=== PATIENT | female | born 1935 | race Caucasian/White ===

== ENCOUNTER → 2016-12-31 | Outpatient (CLI) | payer MEDICARE, OTHER | END | disposition home or self-care (01) | LOC: BFHH 08:49 | PROVIDERS: ATTEND Family Medicine | DX: E11.42 Type 2 diabetes mellitus with diabetic polyneuropathy (principal); R00.1 Bradycardia, unspecified; D64.9 Anemia, unspecified; D51.9 Vitamin B12 deficiency anemia, unspecified; E55.9 Vitamin D deficiency, unspecified; N39.0 Urinary tract infection, site not specified; E78.4 Other hyperlipidemia ==

== ENCOUNTER → 2017-02-09 | Outpatient (CLI) | payer MEDICARE, OTHER | END | disposition home or self-care (01) | LOC: GMAM 12:11 | PROVIDERS: ATTEND Family Medicine | DX: R00.1 Bradycardia, unspecified (principal) ==

== ENCOUNTER → 2017-04-27 | Outpatient (CLI) | payer MEDICARE, OTHER | END | disposition home or self-care (01) | LOC: BFHH 10:54 | PROVIDERS: ATTEND Family Medicine | DX: E11.42 Type 2 diabetes mellitus with diabetic polyneuropathy (principal); I10 Essential (primary) hypertension; I65.22 Occlusion and stenosis of left carotid artery; R00.1 Bradycardia, unspecified; F03.90 Unspecified dementia, unspecified severity, without behavioral disturbance, psychotic disturbance, mood disturbance, and anxiety; M15.0 Primary generalized (osteo)arthritis ==

== ENCOUNTER → 2017-05-28 | Outpatient (CLI) | payer MEDICARE, OTHER ==
--- NOTE | 2017-05-28 15:04 | RAD ---
EXAM DESCRIPTION: XR CHEST 2 VIEWS CLINICAL HISTORY: FEVER COMPARISON: None TECHNIQUE: PA/lateral FINDINGS: Heart size is normal. The lungs are clear. No acute bony abnormality. IMPRESSION: No acute cardiopulmonary process. Electronically signed by: Randolph Bardales MD 05/28/2017 3:02 PM CDT
== END | disposition home or self-care (01) ==
LOC: LAB.O 14:24
PROVIDERS: ATTEND Nurse Practitioner Family
DX: E53.8 Deficiency of other specified B group vitamins (principal); R50.9 Fever, unspecified; R53.82 Chronic fatigue, unspecified

== ENCOUNTER → 2017-07-13 | Outpatient (CLI) | payer MEDICARE, OTHER | END | disposition home or self-care (01) | LOC: BFHH 09:48 | PROVIDERS: ATTEND Family Medicine | DX: J44.1 Chronic obstructive pulmonary disease with (acute) exacerbation (principal); E11.42 Type 2 diabetes mellitus with diabetic polyneuropathy; E53.8 Deficiency of other specified B group vitamins; I10 Essential (primary) hypertension; E78.2 Mixed hyperlipidemia; M89.9 Disorder of bone, unspecified ==

== ENCOUNTER → 2017-10-04 | Outpatient (CLI) | payer MEDICARE, OTHER ==
--- NOTE | 2017-10-04 14:03 | RAD ---
Pelvis one view INDICATION: Left hip pain IMPRESSION: Degenerative scoliosis lumbar spine. Several ossifications in the right lower abdomen or soft tissues. Previous right hip arthroplasty. Ossicle adjacent to the greater trochanter without bridging. 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 No fracture or focal destructive lesion. Electronically signed by: Jake Lester MD 10/04/2017 2:02 PM [facility]
--- NOTE | 2017-10-04 14:07 | RAD ---
Left knee four views INDICATION: Knee pain IMPRESSION: Bones are osteopenic. Multiple vascular calcifications are noted. Mild patellofemoral osteoarthrosis with osteophytes along the joint margins. Moderate osteoarthrosis of the tibiofemoral compartments with joint space narrowing most pronounced in the lateral tibiofemoral compartment. No acute fracture or aggressive destructive lesion. Small suprapatellar joint effusion Electronically signed by: Jake Lester MD 10/04/2017 2:06 PM [facility]
== END | disposition home or self-care (01) ==
LOC: RAD 08:14
PROVIDERS: ATTEND Orthopaedic Surgery
DX: M25.562 Pain in left knee (principal); M25.552 Pain in left hip

== ENCOUNTER → 2017-10-19 | Outpatient (CLI) | payer MEDICARE, OTHER | END | disposition home or self-care (01) | LOC: GMAM 13:12 | PROVIDERS: ATTEND Family Medicine | DX: E11.42 Type 2 diabetes mellitus with diabetic polyneuropathy (principal); E53.8 Deficiency of other specified B group vitamins ==

== ENCOUNTER 2018-02-04 17:26 | Emergency (ER) | payer MEDICARE, OTHER ==
--- NOTE | 2018-02-04 17:49 | ED.PDOC ---
History of Present Illness - General Chief Complaint: GI Problem Stated Complaint: vomiting,diarrhea Time Seen by Provider: 02/04/18 17:34 Information Source: patient Exam Limitations: no limitations - History of Present Illness Initial Comments: Tania Vu 82 y/o female stated she was apparently well since this afternoon then went to have lunch at [facility] ate beef tips,macaroni and dessert then several hours after eating had onset of watery diarrhea followed by nausea /vomiting went to see her Md but was sent over here for further evaluation.She did not have N/V/D here in er. Abdominal Pain Onset Location: generalized abdomen Pain Radiation: no radiation Quality: mild, cramping Timing/Duration: 4-6 hours Improving Factors: nothing Worsening Factors: nothing Associated Symptoms: denies symptoms Review of Systems - Review of Systems Constitutional: States: no symptoms reported EENTM: States: no symptoms reported Respiratory: States: no symptoms reported Cardiology: States: no symptoms reported Gastrointestinal/Abdominal: States: see HPI Musculoskeletal: States: no symptoms reported Skin: States: no symptoms reported Neurological: States: no symptoms reported All other Systems: Reviewed and Negative, No Change from Baseline Past Medical History (General) - Patient Medical History Hx Seizures: No Hx Stroke: Yes - tia's Hx Dementia: No Hx Asthma: No Hx of COPD: No Hx Cardiac Disorders: Yes Hx Congestive Heart Failure: Yes Hx Pacemaker: No Hx Hypertension: Yes Hx Thyroid Disease: No Hx Diabetes: Yes - type 2 Hx Gastroesophageal Reflux: Yes Hx Renal Disease: No Hx Cancer: No Hx of HIV: No Hx Hepatitis C: No Hx MRSA: No Surgical History: tonsillectomy, other - hysterectomy,colonoscopy,left CEA - Vaccination History Hx Tetanus, Diphtheria Vaccination: No - allergy Hx Influenza Vaccination: Yes Hx Pneumococcal Vaccination: Yes - Social History Hx Tobacco Use: No Hx Chewing Tobacco Use: No Hx Alcohol Use: No Hx Substance Use: No Hx Substance Use Treatment: No Hx Depression: No Hx Physical Abuse: No Hx Emotional Abuse: No Hx Suspected Abuse: No - Female History Patient : No Family Medical History - Family History Mother Living Status: Hx Cardiac Disease: Yes - mom Hx Family;Other: bowel deformity;copd-dad Father Living Status: Hx Family Congestive Heart Failure: Yes Hx Family;Other: emphasema Physical Exam - Physical Exam General Appearance: Alert, Comfortable, No apparent distress Eyes, Ears, Nose, Throat Exam: normal ENT inspection Neck: non-tender, supple Respiratory: chest non-tender, lungs clear, normal breath sounds, no respiratory distress Cardiovascular/Chest: normal peripheral pulses, regular rate, rhythm, no murmur Peripheral Pulses: No deficit Gastrointestinal/Abdominal: normal bowel sounds, non tender, soft, no organomegaly Back Exam: no CVA tenderness, no vertebral tenderness Extremity: non-tender, normal inspection, no pedal edema, no calf tenderness Neurologic: alert, oriented x 3 Skin Exam: normal color, warm/dry Progress - Progress Progress: 02/04/18 18:46 02/04/18 17:50 URINALYSIS Stat Laboratory Results - last 24 hr 02/04/18 18:05 Total Bilirubin 0.4 Direct Bilirubin 0.1 Indirect Bilirubin 0.3 AST 27 ALT 12 Alkaline Phosphatase 51 Creatine Kinase 112 CK-MB (CK-2) 4.2 CK-MB (CK-2) % Not Reportable Troponin I < 0.02 Serum Total Protein 7.6 Albumin 4.2 Lipase 38 02/04/18 18:47 Vital Signs - 24 hr 02/04/18 02/04/18 17:45 18:45 Temperature 98.4 F Pulse Rate [ 62 61 Left Brachial] Respiratory 20 20 Rate Blood Pressure 117/66 120/63 [Left Arm] O2 Sat by Pulse 90 L 91 L Oximetry Departure - Departure Clinical Impression: Gastroenteritis Time of Disposition: 20:43 Disposition: Discharge to Home or Self Care Condition: Fair Departure Forms: ED Discharge - Pt. Copy, Patient Portal Self Enrollment Instructions: DI for Viral Gastroenteritis -- Adult, Gastroenteritis Diet Diet: other - AVOID GREASY ,SPICY,DAIRY FOODS UNTIL BETTER Referrals: Randolph Beasley MD [Primary Care Provider] - 1-2 Weeks Home Medications: Ambulatory Orders Donepezil HCl [Aricept] 5 mg PO DAILY 07/04/13 Gabapentin 300 mg PO TID 07/04/13 HYDROcodone 7.5MG/APAP 325MG [[place] 7.5/325] 1 ea PO Q6H 07/04/13 Bifidobacterium Infantis [Align] 4 mg PO DAILY #0 cap 01/10/14 Alum & Mag Hydrox-Simethicone [Mylanta] 30 ml PO PRN PRN 12/07/14 Aspirin [(None)] 81 mg PO QD 12/07/14 Estrogens, Conjugated [Premarin] 0.9 mg PO DAILY 12/07/14 Ferrous Sulfate 352 mg PO DAILY 12/07/14 Simvastatin 40 mg PO DAILY 12/07/14 Ondansetron Odt [Zofran ODT] 4 mg PO BID PRN #7 tab 06/20/15 Ascorbic Acid [Vitamin C] 500 mg PO DAILY 02/04/18 Cholecalciferol [Vitamin D3] 2,000 unit PO DAILY 02/04/18 Clorazepate Dipotassium [Tranxene T] 7.5 mg PO TID 02/04/18 Cyanocobalamin [Vitamin B-12] 1,000 mcg PO DAILY 02/04/18 Multiple Vitamins W/ Minerals [Centrum Silver] 1 tab PO DAILY 02/04/18 Polyethylene Glycol 3350 [Miralax] 17 gm PO DAILY 02/04/18 Pregabalin [Lyrica] 50 mg PO BEDTIME 02/04/18 Zinc 50 mg PO DAILY 02/04/18 Additional Instructions: Return to emergency room as needed
[2018-02-04] MEDS ORDERED: ONDANSETRON INJ 4 MG/2 ML VIAL IV ONE (17:50)
[2018-02-04] MEDS ORDERED: SODIUM CHLORIDE 0.9% 500ML 500 ML IVS ONE (17:50)
[2018-02-04] MEDS ORDERED: LOPERAMIDE CAP 2 MG CAP PO ONE (20:40)
[2018-02-05 01:32] VITALS: BP 141/89; TEMP 98.6; O2SAT 98
== END 2018-02-04 23:50 | disposition home or self-care (01) ==
LOC: ER 17:26
DX: K52.9 Noninfective gastroenteritis and colitis, unspecified (principal); I11.0 Hypertensive heart disease with heart failure; I50.9 Heart failure, unspecified; E11.9 Type 2 diabetes mellitus without complications; K21.9 Gastro-esophageal reflux disease without esophagitis; Z86.73 Personal history of transient ischemic attack (TIA), and cerebral infarction without residual deficits; Z79.82 Long term (current) use of aspirin

== ENCOUNTER → 2018-02-09 | Outpatient (CLI) | payer MEDICARE, OTHER | LOC: GMAM 16:56 | PROVIDERS: ATTEND Family Medicine | DX: R10.84 Generalized abdominal pain (principal) ==

== ENCOUNTER → 2018-02-11 | Outpatient (CLI) | payer MEDICARE, OTHER | LOC: GMAM 13:28 | PROVIDERS: ATTEND Family Medicine | DX: I50.22 Chronic systolic (congestive) heart failure (principal) ==

== ENCOUNTER → 2018-02-14 | Outpatient (CLI) | payer MEDICARE, OTHER ==
--- NOTE | 2018-02-14 11:04 | CT ---
EXAM DESCRIPTION: CT ABDOMEN AND PELVIS WITHOUT AND WITH CONTRAST CLINICAL HISTORY: ABD PAIN COMPARISON: CT abdomen June 03, 2016 TECHNIQUE: CT of the abdomen and pelvis are performed prior to and during IV bolus administration of 100 mL of Optiray 320. Oral contrast media is administered as well. FINDINGS: The lung bases are abnormal with chronic appearing scarring/atelectasis in the right middle lobe and clustered nodules in the peripheral right middle lobe and right lower lobe suggesting indolent infection with atypical organisms such as fungus or atypical TB. Findings are new or more extensive than on previous study in 2016. There is some associated peripheral bronchiolectasis. Gallbladder clips are seen in the right upper quadrant with gallbladder surgically absent. Small accessory splenule is present. Large right renal cyst measures 4.3 cm in diameter with density of 14.6 Hounsfield units. Liver is normal in size and parenchymal appearance on precontrast images. Spleen, pancreas, and kidneys are otherwise unremarkable. There is no lymphadenopathy, inflammation, or free fluid observed. After IV contrast, mild renal cortical thinning is seen with otherwise normal cortical enhancement. Normal enhancement of liver, spleen and pancreas and upper abdominal aorta. Multiple fatty calcifications around the colon are noted unchanged. Small lesion in the spleen may be cyst or unenhanced hemangioma. In the pelvis, metal artifact from right hip prosthesis causes obscuration of the right lateral aspect of the lower pelvis. No acute inflammatory changes around the cecum or terminal ileum or sigmoid colon. Appendix is not identified and may be surgically absent. Delayed images show positive contrast accumulation within the urinary collecting systems with no filling defects. No enhancement of the right renal lesion as expected for a simple cyst. Some mildly prominent fluid-filled small bowel loops are seen without a focal point of obstruction. Coronal and sagittal reformatted images confirm the findings. Severe degenerative disc disease is seen in the thoracolumbar spine. IMPRESSION: Nodular infiltrative changes in the right lung base. See above. Right renal cyst Mildly prominent small bowel loops in the mid abdomen. This is not thought likely to represent obstruction however. This exam was performed according to our departmental dose-optimization program, which includes automated exposure control, adjustment of the mA and/or kV according to patient size and/or use of iterative reconstruction technique. Total DLP equals 2445.46 mGycm. Electronically signed by: Chester Barajas MD 02/14/2018 11:03 AM CDT
== END ==
LOC: CT 08:46
PROVIDERS: ATTEND Family Medicine
DX: R10.84 Generalized abdominal pain (principal); R63.4 Abnormal weight loss; N28.1 Cyst of kidney, acquired

== ENCOUNTER → 2018-02-19 | Outpatient (CLI) | payer MEDICARE, OTHER | LOC: LAB.O 16:36 | PROVIDERS: ATTEND Family Medicine | DX: R91.8 Other nonspecific abnormal finding of lung field (principal) ==

== ENCOUNTER → 2018-03-17 | Outpatient (CLI) | payer MEDICARE, OTHER ==
--- NOTE | 2018-03-18 08:19 | CT ---
EXAM DESCRIPTION: Chest w/Contrast CLINICAL HISTORY: 82 years Female, ABNORMAL FINDING OF LUNG FIELD COMPARISON: CT abdomen and pelvis dated 02/14/2018. TECHNIQUE: Contiguous thin section axial images through the chest were obtained after the administration of intravenous contrast. Sagittal and coronal reconstructions were reviewed. FINDINGS: The visualized thyroid gland and supraclavicular region appear normal. No evidence of abnormally enlarged mediastinal, hilar or axillary lymphadenopathy. Trachea is midline and the central tracheobronchial tree is patent. Tree-in-bud airspace opacities are identified in the right upper and lower lobe. In addition scattered groundglass opacities are identified in both lungs. Findings are suspicious for atypical pneumonia. No evidence of pleural effusions. The heart is normal in size with no pericardial effusion. The visualized aorta is nonaneurysmal with mild to moderate atherosclerosis. The superior vena cava is normal in size and caliber. Mild coronary artery atherosclerosis. There is circumferential thickening of the distal esophagus which could be secondary to reflux. A simple cyst is identified in the interpolar region of the right kidney. No other abnormality is noted in the imaged upper abdomen. Degenerative changes are identified throughout the thoracic spine. IMPRESSION: 1. Tree in bud nodular airspace opacities and scattered groundglass opacities are identified throughout both lungs as detailed above. Findings are most likely consistent with atypical pneumonia. 2. Changes of reflux esophagitis. This exam was performed according to our departmental dose-optimization program, which includes automated exposure control, adjustment of the mA and/or kV according to patient size and/or use of iterative reconstruction technique. Electronically signed by: Huong Beauchamp MD 03/18/2018 8:18 AM CDT
== END ==
LOC: CT 09:26
PROVIDERS: ATTEND Family Medicine
DX: R91.8 Other nonspecific abnormal finding of lung field (principal)

== ENCOUNTER → 2018-04-26 | Outpatient (CLI) | payer MEDICARE, OTHER | LOC: LAB.O 04-25 16:04 | PROVIDERS: ATTEND Internal Medicine | DX: R05 Cough (principal) ==

== ENCOUNTER → 2018-04-30 | Outpatient (CLI) | payer MEDICARE, OTHER | LOC: LAB.O 16:26 | PROVIDERS: ATTEND Internal Medicine | DX: R05 Cough (principal) ==

== ENCOUNTER → 2018-05-17 | Outpatient (CLI) | payer MEDICARE, OTHER | LOC: GMAM 11:12 | PROVIDERS: ATTEND Family Medicine | DX: E53.8 Deficiency of other specified B group vitamins (principal) ==

== ENCOUNTER → 2018-08-16 | Outpatient (CLI) | payer MEDICARE, OTHER | LOC: GMAM 11:54 | PROVIDERS: ATTEND Family Medicine | DX: E53.8 Deficiency of other specified B group vitamins (principal) ==

== ENCOUNTER 2018-09-29 23:38 | Emergency (ER) | payer MEDICARE, OTHER ==
[2018-09-30 00:07] VITALS: O2SAT 93
--- NOTE | 2018-09-30 00:14 | RAD ---
PROCEDURE: Ankle,Left 2 Views CLINICAL HISTORY: fall with deformity INDICATION: Same as above COMPARISON: Same as above . TECHNIQUE: Two Views of the left ankle were done. FINDINGS: There is no evidence of acute fractures or dislocation involving the left ankle. There is soft tissue swelling around the ankle. There is a tiny plantar calcaneal spur The talar dome and the subtalar joints are unremarkable. The joint spaces are relatively well-maintained. There is no visualization of any radiopaque foreign bodies. IMPRESSION: Negative for acute bony trauma involving the left ankle Place of interpretation: Teleradiology. Electronically signed by: Steven Ness MD 09/30/2018 12:13 AM [facility] Workstation: [id number]
--- NOTE | 2018-09-30 00:16 | RAD ---
PROCEDURE: Foot,Left 2 Views CLINICAL HISTORY: fall with deformity INDICATION: Same as above COMPARISON: None . TECHNIQUE: Two Views of the left foot were done. FINDINGS: There is no evidence of acute fractures or dislocation involving the bones of the left foot. The second toe is absent. There is a tiny plantar calcaneal spur The joint spaces are relatively well-maintained. There is no evidence of bony tarsal coalition. The soft tissues are radiographically unremarkable. There is no visualization of any radiopaque foreign bodies in the visualized soft tissues. IMPRESSION: Negative for acute bony findings involving the left foot Place of interpretation: [id number]. Electronically signed by: Steven Ness MD 09/30/2018 12:14 AM [facility] Workstation: [id number]
--- NOTE | 2018-09-30 00:17 | RAD ---
PROCEDURE: Knee,Left 2 or More Views Clinical History: fall with deformity Indication: Same as above. Comparison: 10/04/2017 . Technique: Two Views of the left knee were done. Findings: There is no evidence of acute fractures or dislocations involving the bones of the left knee joint. There is mild suprapatellar joint effusion. Mild reduction in the femorotibial joint compartments along with marginal osteophyte formation in a tricompartmental distribution is noted. The soft tissues are radiographically unremarkable. There is no visualization of any radiopaque foreign bodies in the evaluated soft tissues. Impression: Negative for acute bony findings involving the left knee Place of interpretation: [id number]. Electronically signed by: Steven Ness MD 09/30/2018 12:16 AM [facility] Workstation: [id number]
--- NOTE | 2018-09-30 00:33 | ED.PDOC ---
History of Present Illness - General Chief Complaint: Lower Extremity Injury Stated Complaint: left ankle pain, trippped en fell Time Seen by Provider: 09/29/18 23:42 Source: patient Exam Limitations: no limitations - History of Present Illness Initial Comments: the patient is an 83-year-old female presenting to the emergency room after having had a fall at home. She twisted her left ankle and has pain in the areas of the medial and lateral malleoli on the left. She does have long- term decreased sensation due to her diabetes and she does have long-term significant peripheral vascular disease related to that and has lost one digit on that foot and has a healing sore on the toe. The patient has a significant fallen arch with resultant relative eversion of the foot that appears to be chronic. She does have swelling around the ankle joint that also appears to at least be partially chronic. She has had to wear a brace on that ankle before given to her by an orthopedist. Timing/Duration: momentarily Severity: moderate Improving Factors: immobilization Worsening Factors: movement Associated Symptoms: denies symptoms Allergies/Adverse Reactions: Allergies Cephalexin [From Keflex] Allergy (Mild, Verified 09/29/18 23:58) Iodine Allergy (Unknown, Verified 09/29/18 23:58) Latex Allergy (Verified 09/29/18 23:58) Tetanus Toxoid Allergy (Verified 09/29/18 23:58) IV Dye Allergy (Unknown, Uncoded 09/29/18 23:58) antibiotics Adverse Reaction (Uncoded 09/29/18 23:58) Home Medications: Ambulatory Orders Donepezil HCl [Aricept] 5 mg PO DAILY 07/04/13 Gabapentin 300 mg PO TID 07/04/13 HYDROcodone 7.5MG/APAP 325MG [[place] 7.5/325] 1 ea PO Q6H 07/04/13 Bifidobacterium Infantis [Align] 4 mg PO DAILY #0 cap 01/10/14 Alum & Mag Hydrox-Simethicone [Mylanta] 30 ml PO PRN PRN 12/07/14 Aspirin [(None)] 81 mg PO QD 12/07/14 Estrogens, Conjugated [Premarin] 0.9 mg PO DAILY 12/07/14 Ferrous Sulfate 65 mg PO DAILY 12/07/14 Simvastatin 40 mg PO DAILY 12/07/14 Ondansetron Odt [Zofran ODT] 4 mg PO BID PRN #7 tab 06/20/15 Ascorbic Acid [Vitamin C] 500 mg PO DAILY 02/04/18 Cholecalciferol [Vitamin D3] 2,000 unit PO DAILY 02/04/18 Clorazepate Dipotassium [Tranxene T] 7.5 mg PO TID 02/04/18 Cyanocobalamin [Vitamin B-12] 1,000 mcg PO DAILY 02/04/18 Multiple Vitamins W/ Minerals [Centrum Silver] 1 tab PO DAILY 02/04/18 Polyethylene Glycol 3350 [Miralax] 17 gm PO DAILY 02/04/18 Pregabalin [Lyrica] 50 mg PO BEDTIME 02/04/18 Zinc 50 mg PO DAILY 02/04/18 Omeprazole Magnesium [Prilosec Otc] 40 mg PO DAILY 09/30/18 Review of Systems - Review of Systems Review of Systems: 09/30/18 00:32 for new symptoms only: Constitutional: States: no symptoms reported EENTM: States: no symptoms reported Respiratory: States: no symptoms reported Cardiology: States: no symptoms reported Gastrointestinal/Abdominal: States: no symptoms reported Genitourinary: States: no symptoms reported Musculoskeletal: States: see HPI Skin: States: no symptoms reported Neurological: States: no symptoms reported Endocrine: States: no symptoms reported All other Systems: No Change from Baseline Past Medical History (General) - Patient Medical History Hx Seizures: No Hx Stroke: Yes - tia's Hx Dementia: No Hx Asthma: No Hx of COPD: No Hx Cardiac Disorders: Yes Hx Congestive Heart Failure: No Hx Pacemaker: No Hx Hypertension: Yes Hx Thyroid Disease: No Hx Diabetes: Yes Hx Gastroesophageal Reflux: Yes Hx Renal Disease: No Hx Cancer: No Hx of HIV: No Hx Hepatitis C: No Hx MRSA: No Surgical History: appendectomy, cholecystectomy, tonsillectomy, Hysterectomy, other - Vaccination History Hx Tetanus, Diphtheria Vaccination: Yes - last one given in 2001 Hx Influenza Vaccination: Yes Hx Pneumococcal Vaccination: Yes Immunizations Up to Date: Yes - Social History Hx Tobacco Use: Yes Hx Chewing Tobacco Use: No Hx Alcohol Use: No Hx Substance Use: No Hx Substance Use Treatment: No Hx Depression: No Feels Threatened In Home Enviroment: No Feels Threatened In a Relationship: No Hx Physical Abuse: No Hx Emotional Abuse: No Hx Suspected Abuse: No - Activities of Daily Living Hospice Agency (if applicable):: None - Female History Patient is a Female of Child Bearing Age (10 -59 yrs old): No Patient : No - Triage Comment ED Triage Comment: Pt states that she slipped and fell about an hour ago. Pt states that her ankle is sore but is unable to assign it a numerical pain scale. Family Medical History - Family History Mother Living Status: Hx Cardiac Disease: Yes - mom Hx Family;Other: bowel deformity;copd-dad Father Living Status: Hx Family Congestive Heart Failure: Yes Hx Family;Other: emphasema Physical Exam - Physical Exam General Appearance: Alert, Comfortable, No apparent distress Eye Exam: bilateral normal Ears, Nose, Throat: normal pharynx, other - earing ismarkedly decreased but chronic Neck: full range of motion, supple Respiratory: lungs clear, normal breath sounds, no respiratory distress, no accessory muscle use Cardiovascular/Chest: normal peripheral pulses, no edema, other - regular rate Peripheral Pulses: radial,right: 2+, radial,left: 2+, dorsalis pedis,right: 1+, dorsalis pedis,left: 1+ Gastrointestinal/Abdominal: non tender, soft Rectal Exam: deferred Back Exam: no vertebral tenderness Extremity: no calf tenderness, normal capillary refill, other - tenderness and swelling around the left ankle Neurologic: alert, normal mood/affect, oriented x 3, other - chronic decreased sensationdistally. Chronic decreased hearing. Otherwise essentially neurologically intact. Skin Exam: normal color - smallhealing ulcer to the first toe on the left foot. 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 Vital Signs - 24 hr 09/29/18 09/30/18 23:59 00:23 Temperature 98.2 F Pulse Rate [ 58 L 58 L Monitor] Respiratory 18 18 Rate Blood Pressure 146/72 [Right Arm] O2 Sat by Pulse 93 L Oximetry Progress - Progress Progress: 09/30/18 00:34 the patient today 83-year-old female presenting to the emergency room after having fallen at home and twisted her left ankle. This appears to only be a sprain based on the x-rays of the foot, ankle and knee. The patient is placed in a long walking boot. She needs to get around carefully to prevent further falls. I would like for her to see her primary care doctor later in the coming week and make sure that she is improving. If she has not then repeat x-rays may be warranted. Motrin can be taken for pain. ER warnings were given. Departure - Departure Clinical Impression: Sprain of left ankle or foot, Fall at home Disposition: Discharge to Home or Self Care Condition: Fair Departure Forms: ED Discharge - Pt. Copy, Patient Portal Self Enrollment Diet: diabetic diet Activity: increase activity as tolerated Referrals: Randolph Beasley MD [Primary Care Provider] - 1-2 Weeks Home Medications: Ambulatory Orders Donepezil HCl [Aricept] 5 mg PO DAILY 07/04/13 Gabapentin 300 mg PO TID 07/04/13 HYDROcodone 7.5MG/APAP 325MG [[place] 7.5/325] 1 ea PO Q6H 07/04/13 Bifidobacterium Infantis [Align] 4 mg PO DAILY #0 cap 01/10/14 Alum & Mag Hydrox-Simethicone [Mylanta] 30 ml PO PRN PRN 12/07/14 Aspirin [(None)] 81 mg PO QD 12/07/14 Estrogens, Conjugated [Premarin] 0.9 mg PO DAILY 12/07/14 Ferrous Sulfate 65 mg PO DAILY 12/07/14 Simvastatin 40 mg PO DAILY 12/07/14 Ondansetron Odt [Zofran ODT] 4 mg PO BID PRN #7 tab 06/20/15 Ascorbic Acid [Vitamin C] 500 mg PO DAILY 02/04/18 Cholecalciferol [Vitamin D3] 2,000 unit PO DAILY 02/04/18 Clorazepate Dipotassium [Tranxene T] 7.5 mg PO TID 02/04/18 Cyanocobalamin [Vitamin B-12] 1,000 mcg PO DAILY 02/04/18 Multiple Vitamins W/ Minerals [Centrum Silver] 1 tab PO DAILY 02/04/18 Polyethylene Glycol 3350 [Miralax] 17 gm PO DAILY 02/04/18 Pregabalin [Lyrica] 50 mg PO BEDTIME 02/04/18 Zinc 50 mg PO DAILY 02/04/18 Omeprazole Magnesium [Prilosec Otc] 40 mg PO DAILY 09/30/18 Additional Instructions: the patient today 83-year-old female presenting to the emergency room after having fallen at home and twisted her left ankle. This appears to only be a sprain based on the x-rays of the foot, ankle and knee. The patient is placed in a long walking boot. She needs to get around carefully to prevent further falls. I would like for her to see her primary care doctor later in the coming week and make sure that she is improving. If she has not then repeat x-rays may be warranted. Motrin can be taken for pain. ER warnings were given.
[2018-09-30 00:56] VITALS: BP 138/79; TEMP 98.4
== END 2018-09-30 00:50 | disposition home or self-care (01) ==
LOC: ER 23:38
DX: S93.402A Sprain of unspecified ligament of left ankle, initial encounter (principal); W01.0XXA Fall on same level from slipping, tripping and stumbling without subsequent striking against object, initial encounter; Y92.009 Unspecified place in unspecified non-institutional (private) residence as the place of occurrence of the external cause; I51.9 Heart disease, unspecified; I10 Essential (primary) hypertension; K21.9 Gastro-esophageal reflux disease without esophagitis; Z86.73 Personal history of transient ischemic attack (TIA), and cerebral infarction without residual deficits; Z87.891 Personal history of nicotine dependence; Z79.82 Long term (current) use of aspirin; Z79.899 Other long term (current) drug therapy; Z91.040 Latex allergy status; Z88.7 Allergy status to serum and vaccine; Z91.041 Radiographic dye allergy status; Z88.1 Allergy status to other antibiotic agents

== ENCOUNTER → 2018-10-13 | Outpatient (CLI) | payer MEDICARE, OTHER ==
--- NOTE | 2018-10-13 10:23 | RAD ---
EXAM DESCRIPTION: Ankle,Left 3 Views CLINICAL HISTORY: ANKLE PAIN COMPARISON: September 13, 2018 IMPRESSION: 3 views of the left ankle show a mildly comminuted, minimally displaced spiral fracture of the distal fibula at and proximal to the level of the ankle mortise. Ankle mortise appears maintained and intact. Moderate soft tissue swelling over the lateral malleolus seen. Moderate pes planus is seen. Small plantar enthesophyte of the calcaneus is noted. Moderate osteoarthritic changes of the midfoot tarsal bones. Electronically signed by: Jameson Kelly MD 10/13/2018 10:22 AM [facility]
== END ==
LOC: RAD 08:10
PROVIDERS: ATTEND Orthopaedic Surgery
DX: S82.65XA Nondisplaced fracture of lateral malleolus of left fibula, initial encounter for closed fracture (principal); M21.42 Flat foot [pes planus] (acquired), left foot

== ENCOUNTER → 2018-11-03 | Outpatient (CLI) | payer MEDICARE, OTHER | LOC: GT 13:53 | PROVIDERS: ATTEND Family Medicine | DX: N39.0 Urinary tract infection, site not specified (principal) ==

== ENCOUNTER 2018-11-04 10:03 | Observation (INO) | payer MEDICARE, OTHER ==
[~2018-11-04 10:03] MED LIST: GABAPENTIN 300 MG CAP PO ONE
--- NOTE | 2018-11-04 10:06 | HP ---
SUPERVISING PHYSICIAN: Kenrick Oneill MD CHIEF COMPLAINT: Rapid heart rate. HISTORY OF PRESENT ILLNESS: Ms. Vu is an 83 year-old female patient of Dr. Beasley. She reside at [facility]. She noted she started having some diarrhea in the last 4 days and just not feeling well. She went to the clinic today to see Dr. Beasley in regards to diarrhea and was found on EKG to be in a new onset of atrial fibrillation with a rapid ventricular response rate showing to be around 130. She has no history of atrial fibrillation. She does have a history of diabetes mellitus type 2. She notes she has been having some abdominal bloating but denies any chest pain. She notes that she was recently in the rehabilitation hospital in [facility] at which time she was transferred to [facility]. She was at rehabilitation due to a tibial fracture she sustained earlier in the month. She notes she has been having anywhere from 3 to 4 stools within the last 3 to 4 days which she describes as loose and watery. Given that she has no past history of atrial fibrillation, it is felt that the patient was significantly dehydrated and was probably having a rapid ventricular response secondary to ongoing dehydration but will need to continued further workup in regards to the atrial fibrillation and possible rate control. She is going to be admitted for further treatment and evaluation. She was placed in observation in stable condition. PAST MEDICAL HISTORY: 1. Carotid artery stenosis. 2. Congestive heart failure with grade 2 diastolic dysfunction with ejection fraction in 2017 noted to be at 55%. 3. Hyperlipidemia. 4. Hypertension with grade 2 diastolic dysfunction with ejection fraction of 55% in 2017. 5. Chronic gastroesophageal reflux disease. 6. Recurrent C-diff. 7. Chronic pain in back and hips. 8. Degenerative disk disease. 9. Osteoporosis. 10. Osteopenia. 11. Type 2 diabetes mellitus previous history, on and off for 10 years with neuropathy. 12. History of migraine headaches. 13. Transient ischemic attacks due to carotid artery stenosis. 14. History of retinal hemorrhage. PAST SURGICAL HISTORY: 1. Appendectomy. 2. Cholecystectomy. 3. Hysterectomy. 4. Tonsillectomy and adenoidectomy. 5. Benign breast biopsy. 6. Carotid endarterectomy. 7. Removal of lipoma from right hip. 8. Amputation of left second toe in 2011. 9. Total hip replacement in 2009. CURRENT MEDICATIONS: 1. Pantoprazole 40 mg daily. 2. Zofran 4 mg daily as needed. 3. Vitamin B12, 1000 mcg daily. 4. Os-Jose 500 mg with vitamin D, one tablet b.i.d. 5. Lipitor 20 mg at bedtime. 6. Robitussin with guaifenesin 10 mL every 6 hours as needed for cough. 7. Zocor 40 mg daily. 8. Questran 4 grams b.i.d. 9. Epinephrine pen 0.3 mg subcu as needed. 10. Arnuity Ellipta 50 mcg daily. 11. Loratadine 10 mg daily. 12. Imodium AD one mg daily. 13. Senokot-S b.i.d. as needed. 14. Dulcolax 10 mg daily as needed. 15. Proventil nebs 2.5 mg inhaled every 6 hours as needed. 16. Trazodone 50 mg at bedtime. 17. Arcadia 7.5/325, one every 6 hours as needed. 18. Vitamin B12, 1000 mcg monthly. 19. Mylanta 30 mLs every 4 hours as needed. 20. Vitamin D3 2000 units daily. 21. Tranxene 7.5 mg t.i.d. 22. Aricept 23 mg at bedtime. 23. Premarin 0.9 mg daily. 24. Centrum Silver 1 tablet daily. 25. Gabapentin 300 mg t.i.d. 26. Lyrica 15 mg at bedtime. 27. Miralax 17 grams daily. ALLERGIES: CEPHALEXIN, IODINE, LATEX, TETANUS, IV DYE FAMILY HISTORY: Father at age 92 secondary to chronic congestive heart failure. Mother at age 80 secondary to myocardial infarction, she also had congestive heart failure and chronic obstructive pulmonary disease. She has one son due to electrocution. She has one daughter who has multiple sclerosis. SOCIAL HISTORY: The patient is a homemaker. She is , lives at [facility] currently. She has 2 children, one , one living. She has never drank alcohol. She does have a history of cigarette smoking but quit in 1981. She does not use illicit drugs. REVIEW OF SYSTEMS: CONSTITUTIONAL: Negative for chills, fatigue, fever, unintentional weight gain. CHEST: Negative for coughing, wheezing, shortness of breath. HEART: Negative for chest pain, palpitations syncopal episodes. ABDOMEN: Positive for diarrhea as noted in history of present illness. Negative for constipation, abdominal pains. MUSCULOSKELETAL: Negative for arthralgias, back pains, myalgias. NEUROLOGIC: Negative for ataxia, headache, seizure activity. PHYSICAL EXAMINATION: VITAL SIGNS: Temperature on admission 98.2, pulse 104 with EKG showing atrial fibrillation. Blood pressure 102/62, respirations 16, saturation 95% on room air. Weight 64.1 kg. GENERAL: The patient appears to be comfortable, resting, in no acute distress. She is well-nourished, looks mildly dehydrated. HEENT: Tympanic membranes clear bilaterally. Oropharynx pink with mucous membranes notably dry with cracked lips and tongue. No lesions or rashes. NECK: Supple, non-tender, full range of motion. CHEST: Lungs clear to auscultation without rhonchi, rales, or wheezes . CARDIOVASCULAR: Slightly irregular rate and rhythm with a rate of 104 on monitor showing atrial fibrillation with no murmurs, rubs, or gallops notable. ABDOMEN: Soft, non-tender, positive bowel sound. EXTREMITIES: Without cyanosis, clubbing, or edema. NEUROLOGIC: Alert and oriented x 3. Facial features were symmetrical. Extraocular movements within normal limits. There is no notable nystagmus. SKIN: Warm, pink and dry with no lesions or rashes. LYMPHATICS: Without notable lymphadenectomy LABORATORY: CBC on admission showed a white count of 5,400, hemoglobin 14.6, hematocrit 44.7, platelet count 159,000. Differential showed to be without a left shift. Coagulation studies showed normal PT/PTT. Chemistries showed a mildly low potassium at 3.0 with BUN 12, creatinine 1.0, magnesium 1.6. Liver functions showing to be within normal limits. BNP normal at 49. Urinalysis pending. RADIOLOGY: Chest x-ray per radiology interpretation of single view shows heart size and pulmonary vascularity within normal limits. Lungs hyperextended, no air space consolidations, pleural effusions or pneumothorax. ASSESSMENT: 1. Persistent diarrhea, probably likely due to viral gastroenteritis resulting in moderate dehydration with the patient having history of C.diff. 2. New onset of atrial fibrillation with initial rapid ventricular response but responding to fluids probably exacerbated by underlying dehydration. 3. Electrolyte imbalance to include hypokalemia, hypomagnesemia, probably due to the ongoing diarrhea. 4. Chronic congestive heart failure without signs of exacerbation with echocardiogram in 2018 showing to be with a preserved ejection fraction of 55% with a grade 2 diastolic dysfunction 5. Hypertension with grade 2 diastolic dysfunction with last echocardiogram revealing a 55% ejection fraction. 6. Chronic gastroesophageal reflux disease. 7. History of recurrent C.diff with the patient not currently on any previous antibiotics within the last 90 days. 8. History of osteopenia. 9. History of recent left tibial fracture utilizing a boot. 10. History of transient ischemic attacks with history of carotid artery stenosis. 11. History of migraine headaches. PLAN: Ms. Vu is going to be placed in observation today directly from the clinic for further close monitoring and treatment of the new onset of atrial fibrillation. She will be on cardiac telemetry. Given she is having some obvious dehydration, will give her fluids fairly aggressive but monitor closely given her ejection fraction of 55%. At this point she is without any chest pains or any other symptoms. Will hold off for any rate controlled medication. Will check guaiacs on stools to be sure she has not had any obvious hematochezia or GI bleeds and will start her on Lovenox in anticipation of putting her on Xarelto prior to discharge for epi coagulation. She will need close clinical followup as soon as discharged next week with Dr. Beasley in Cardiology to further address the new onset of atrial fibrillation. Will recheck labs in the morning. Will also do stool studies to include cultures, leukocytes, occult blood and C.diff to further rule out any infectious source in regards to the diarrhea. Will anticipate length of stay to be 1 to 2 days, possibly discharging by Wednesday. Until then until she transitions to outpatient management, will continue to monitor and treat as needed. #[id number] [facility]
[2018-11-04] MEDS ORDERED: ACETAMINOPHEN 325 MG TAB PO PRN (11:05)
[2018-11-04] MEDS ORDERED: SODIUM CHLORIDE 0.9% (FLUSH) 10 ML SYG IV PRN (11:05)
[2018-11-04] MEDS ORDERED: IV SET AND CAP CHANGE INJ INJ SCH (11:30)
[2018-11-04] MEDS: KCL 20 MEQ/NS 1,000 ML IVS PRN ×2 (11:37→19:38)
--- NOTE | 2018-11-04 11:45 | RAD ---
EXAM DESCRIPTION: Chest,1 View CLINICAL HISTORY: 83 years Female, New onset Afib COMPARISON: 05/28/2017 IMPRESSION: Heart size and pulmonary vascularity are within normal limits. Calcific plaque in the thoracic aorta. The lungs are hyperexpanded. No confluent airspace consolidation, pleural effusion, or pneumothorax. No acute osseous abnormality. Electronically signed by: Donovan Michelle MD 11/04/2018 11:44 AM [facility]
[2018-11-04] MEDS ORDERED: MAGNESIUM SULFATE PREMIX 2GM 2 GM in PREMIX BAG 1 BAG IVPB ONE (12:46)
[2018-11-04] MEDS ORDERED: POTASSIUM CHLORIDE 20 MEQ TAB PO ONE (12:46)
[2018-11-04] MEDS ORDERED: MAGNESIUM SULFATE PREMIX 2GM 50 ML IVPB ONE (12:53)
[2018-11-04] MEDS: ENOXAPARIN SODIUM 40 MG/0.4 ML SYG SUBCU SCH (12:55)
[2018-11-04] MEDS ORDERED: NON-FORMULARY MEDICATION 1 EA MIS (Cyanocobalamin [Vitamin B-12] 1,000 MCG) IM SCH (18:30)
[2018-11-04] MEDS ORDERED: HYDROcodone 7.5MG/APAP 325MG 1 EA TAB PO SCH (18:30)
[2018-11-04] MEDS ORDERED: GABAPENTIN 300 MG CAP ONE (19:30)
[2018-11-04] MEDS ORDERED: PREGABALIN 25 MG CAP ONE (19:31)
[2018-11-04] MEDS: GABAPENTIN 300 MG CAP PO SCH (20:47)
[2018-11-04] MEDS: CLORAZEPATE DIPOTASSIUM 7.5 MG PO SCH (20:48)
[2018-11-04] MEDS ORDERED: CHOLESTYRAMINE 4 GM PO SCH (21:00)
[2018-11-04] MEDS ORDERED: ATORVASTATIN 20 MG TAB PO SCH (21:00)
[2018-11-04] MEDS ORDERED: traZODone HCL 50 MG TAB PO SCH (21:00)
[2018-11-04] MEDS ORDERED: DONEPEZIL HYDROCHLORIDE PO SCH (21:00)
[2018-11-04] MEDS ORDERED: CALCIUM CARBONATE-VITAMIN D 500 MG TAB PO SCH (21:00)
[2018-11-04] MEDS ORDERED: NON-FORMULARY MEDICATION 1 EA MIS (Pregabalin [Lyrica] 50 MG) PO SCH (21:00)
[2018-11-04] MEDS: HYDROcodone 7.5MG/APAP 325MG 1 EA TAB PO PRN (23:44)
[2018-11-04] MEDS: guaiFENesin 100 MG/5 ML 10 ML UD PO SCH (23:45)
[2018-11-05] MEDS: KCL 20 MEQ/NS 1,000 ML IVS PRN ×2 (02:08→09:07)
[2018-11-05] MEDS: guaiFENesin 100 MG/5 ML 10 ML UD PO SCH (05:52)
[2018-11-05] MEDS: HYDROcodone 7.5MG/APAP 325MG 1 EA TAB PO PRN (05:53)
[2018-11-05] MEDS ORDERED: PANTOPRAZOLE SODIUM TAB 40 MG PO SCH (06:30)
[2018-11-05] MEDS ORDERED: CHOLESTYRAMINE 4 GM PO SCH (08:00)
[2018-11-05] MEDS ORDERED: GABAPENTIN 300 MG CAP ONE (08:23)
[2018-11-05] MEDS: CHOLECALCIFEROL 2,000 IU TAB PO SCH (08:32)
[2018-11-05] MEDS: LORATADINE 10 MG TAB PO SCH (08:33)
[2018-11-05] MEDS: MULTIPLE VITAMINS W/ MINERALS 1 EA TAB PO SCH (08:34)
[2018-11-05] MEDS: CALCIUM CARBONATE-VITAMIN D 500 MG TAB PO SCH ×2 (08:34→20:00)
[2018-11-05] MEDS: CYANOCOBALAMIN 1,000 MCG TAB PO SCH (08:34)
[2018-11-05] MEDS: GABAPENTIN 300 MG CAP PO SCH ×3 (08:35→20:00)
[2018-11-05] MEDS: ENOXAPARIN SODIUM 40 MG/0.4 ML SYG SUBCU SCH (08:35)
[2018-11-05] MEDS: POLYETHYLENE GLYCOL 3350 17 GM PCKT PO SCH (08:40)
[2018-11-05] MEDS: CLORAZEPATE DIPOTASSIUM 7.5 MG PO SCH ×3 (08:40→19:59)
[2018-11-05] MEDS ORDERED: ESTROGENS CONJUGATED 0.9 MG PO SCH (09:00)
[2018-11-05] MEDS ORDERED: FLUTICASONE FUROATE IN SCH (09:00)
[2018-11-05] MEDS ORDERED: LOPERAMIDE HCL 1 MG PO SCH (09:00)
[2018-11-05] MEDS ORDERED: SODIUM CHLORIDE 0.9% (FLUSH) 10 ML SYG IV ONE (09:05)
[2018-11-05] MEDS: SODIUM CHLORIDE 0.9% (FLUSH) 10 ML SYG IV SCH ×2 (09:44→20:01)
[2018-11-05] MEDS ORDERED: guaiFENesin 100 MG/5 ML 10 ML UD PO PRN (10:00)
[2018-11-05] MEDS ORDERED: PANTOPRAZOLE SODIUM TAB 40 MG PO ONE (19:11)
[2018-11-05] MEDS ORDERED: DONEPEZIL HYDROCHLORIDE PO SCH (20:00)
[2018-11-05] MEDS ORDERED: PREGABALIN 25 MG CAP PO SCH (20:00)
[2018-11-05] MEDS ORDERED: traZODone HCL 50 MG TAB PO SCH (20:00)
[2018-11-05] MEDS ORDERED: SIMVASTATIN 20 MG TAB PO SCH (20:00)
[2018-11-05] MEDS ORDERED: ATORVASTATIN 20 MG TAB PO SCH (20:00)
[2018-11-05] MEDS ORDERED: NON-FORMULARY MEDICATION 1 EA MIS (Simvastatin [Zocor] 40 MG) PO SCH (21:00)
--- NOTE | 2018-11-05 23:20 | PN ---
DATE: 11/05/18 SUPERVISING PHYSICIAN: Kenrick Oneill M.D. SUBJECTIVE: The patient has not had any additional diarrhea since admission. She is tolerating her diet well. EKG today now shows that she is in sinus bradycardia that is regular with a first degree AV block. She has had no chest pain. She has been afebrile. No nausea or vomiting. OBJECTIVE: VITAL SIGNS: Pulse 61, blood pressure 155/74, respirations 16, satting 96% on room air with temperature 98.0. I's and O's show a positive balance of 165 with 2415 in, 2250 out. Weight is 67.3 kg. CHEST: Lungs are clear to auscultation, slightly diminished towards the bases. HEART: Regular rate and rhythm showing to be in the 60s. ABDOMEN: Soft, non-tender. Positive bowel sounds. EXTREMITIES: Without any clubbing, cyanosis or edema. NEUROLOGIC: She is alert and oriented times three. LABORATORY: CBC now shows a white count of 5,000, hemoglobin 13.4, hematocrit 40.9, platelet count 154,000. Differential shows to be without a left shift. Chemistries show normal electrolytes. Chloride is up slightly to 112, BUN 11, creatinine 0.74, magnesium has normalized to 1.8. Liver functions are showing normal limits. RADIOLOGY: No additional radiographic studies today. EKG shows sinus bradycardia with a first degree AV block in the 50s with no acute changes as far as ST or T wave elevation, but now in a regular rate compared to admission when she was in atrial fibrillation. ASSESSMENT: 1. Persistent diarrhea, probably due to viral gastroenteritis prior to admission resulting in some dehydration, moderate with the patient having a longstanding history of Clostridium Difficile infection with the patient no longer having any diarrhea after admission. 2. Atrial fibrillation with rapid ventricular response prior to admission but now showing sinus bradycardia with a first degree AV block after treatment with fluids and replacement of her potassium and magnesium. 3. Electrolyte imbalance to include hypokalemia, hypomagnesemia, probably due to the ongoing diarrhea prior to admission resolved with replacement. 4. Chronic congestive heart failure without signs of exacerbation at time of admission with last echocardiogram noted in 2018 with a preserved ejection fraction of 55% with a grade 2 diastolic dysfunction 5. Hypertension with grade 2 diastolic dysfunction with last echocardiogram revealing a 55% ejection fraction. 6. Chronic gastroesophageal reflux disease. 7. History of recurrent C-Diff infections with the patient not currently on any evidence of infectious process with the patient no longer having any diarrhea, not been on any antibiotics within the last 90 days. 8. History of osteopenia. 9. History of recent left tibial fracture utilizing a boot being followed by Dr. Ventura. 10. History of transient ischemic attacks with history of carotid artery stenosis. 11. History of migraine headaches. PLAN: I will go ahead and saline lock the patient today as she is starting to have adequate intake and is no longer having any diarrhea. She seems to be more euvolemic. She remains in a sinus marisol rhythm with a first degree AV block with no signs of atrial fibrillation at this point. Given that she is not showing any atrial fibrillation will hold off on starting her on heart anticoagulation therapy, but continue with Lovenox while she is in the hospital. If she continues to show stable with no longer having any diarrhea and is clinically improving, anticipate discharging tomorrow. Until then will continue to monitor and treat as needed. #[id number] [facility]
[2018-11-06] MEDS ORDERED: PANTOPRAZOLE SODIUM TAB 40 MG PO SCH (06:30)
[2018-11-06 06:55] VITALS: O2SAT 94
[2018-11-06] MEDS ORDERED: ESTROGENS CONJUGATED 0.9 MG PO SCH (08:00)
[2018-11-06] MEDS: ENOXAPARIN SODIUM 40 MG/0.4 ML SYG SUBCU SCH (08:04)
[2018-11-06] MEDS: CYANOCOBALAMIN 1,000 MCG TAB PO SCH (08:05)
[2018-11-06] MEDS: GABAPENTIN 300 MG CAP PO SCH (08:05)
[2018-11-06] MEDS: MULTIPLE VITAMINS W/ MINERALS 1 EA TAB PO SCH (08:06)
[2018-11-06] MEDS: CHOLECALCIFEROL 2,000 IU TAB PO SCH (08:06)
[2018-11-06] MEDS: LORATADINE 10 MG TAB PO SCH (08:06)
[2018-11-06] MEDS: CALCIUM CARBONATE-VITAMIN D 500 MG TAB PO SCH (08:06)
[2018-11-06] MEDS: SODIUM CHLORIDE 0.9% (FLUSH) 10 ML SYG IV SCH (08:07)
[2018-11-06] MEDS: CLORAZEPATE DIPOTASSIUM 7.5 MG PO SCH (08:07)
[2018-11-06] MEDS: POLYETHYLENE GLYCOL 3350 17 GM PCKT PO SCH (08:07)
[2018-11-06] MEDS ORDERED: ASPIRIN (CHEWABLE) 81 MG TAB PO SCH (09:00)
[2018-11-06] MEDS ORDERED: FLUTICASONE PROP 0.05% NASAL 16 GM BTTL BNAS SCH (09:00)
[2018-11-06 10:22] VITALS: BP 121/64; TEMP 97.5
--- NOTE | 2018-11-07 11:23 | DS ---
SUPERVISING PHYSICIAN: Trudi Oneill MD ADMISSION DIAGNOSIS: 1. Persistent diarrhea, probably likely due to viral gastroenteritis resulting in moderate dehydration with the patient having history of Clostridium difficile. 2. New onset of atrial fibrillation with initial rapid ventricular response but responding to fluids, probably exacerbated by underlying dehydration. 3. Electrolyte imbalance to include hypokalemia, hypomagnesemia, probably due to the ongoing diarrhea. 4. Chronic congestive heart failure without signs of exacerbation with echocardiogram in 2018 with a preserved ejection fraction of 55% with a grade 2 diastolic dysfunction. 5. Hypertension with grade 2 diastolic dysfunction with last echocardiogram revealing a 55% ejection fraction. 6. Chronic gastroesophageal reflux disease. 7. History of recurrent Clostridium difficile with the patient not currently on any previous antibiotics within the last 90 days. 8. History of osteopenia. 9. History of recent left tibial fracture utilizing a boot. 10. History of transient ischemic attacks with history of carotid artery stenosis. 11. History of migraine headaches. DISCHARGE DIAGNOSIS: 1. Diarrhea, probably due to viral gastroenteritis prior to admission resulting in some moderate dehydration with the patient no longer having diarrhea prior to discharge. 2. Atrial fibrillation with initial rapid ventricular response on admission but now in a sinus bradycardia rhythm with a first degree AV block with no complications with improvement with fluids and electrolyte replacement. 3. Electrolyte imbalance to include hypokalemia and hypomagnesemia, probably due to ongoing diarrhea, resolved with replacement. 4. Chronic congestive heart failure without signs of exacerbation at time of admission with last echocardiogram noted in 2018 with a preserved ejection fraction of 55% with a grade 2 diastolic dysfunction. 5. Hypertension with grade 2 diastolic dysfunction with last echocardiogram revealing a 55% ejection fraction. 6. Chronic gastroesophageal reflux disease. 7. Past history of Clostridium difficile infections with no evidence of Clostridium difficile at time of admission. of infectious process 8. History of osteopenia. 9. History of recent left tibial fracture utilizing a boot, being followed by Dr. Ventura. 10. History of transient ischemic attacks with history of carotid artery stenosis. 11. History of migraine headaches. REASON FOR HOSPITALIZATION: Ms. Vu is an 83 year-old female patient of Dr. Beasley. She reside at [facility]. She noted she started having some diarrhea in the last 4 days and just not feeling well. She went to the clinic today to see Dr. Beasley in regards to diarrhea and was found on EKG to be in a new onset of atrial fibrillation with a rapid ventricular response rate showing to be around 130. She has no history of atrial fibrillation. She does have a history of diabetes mellitus type 2. She notes she has been having some abdominal bloating but denies any chest pain. She notes that she was recently in the rehabilitation hospital in [facility] at which time she was transferred to [facility]. She was at rehabilitation due to a tibial fracture she sustained earlier in the month. She notes she has been having anywhere from 3 to 4 stools within the last 3 to 4 days which she describes as loose and watery. Given that she has no past history of atrial fibrillation, it is felt that the patient was significantly dehydrated and was probably having a rapid ventricular response secondary to ongoing dehydration but will need to continued further workup in regards to the atrial fibrillation and possible rate control. She is going to be admitted for further treatment and evaluation. She was placed in observation in stable condition. LABORATORY: White count on admission was normal at 5,400 as well as discharge was 5,000. Hemoglobin and hematocrit were stable and at discharge were 13.4 and 40.9. Platelet count 154,000. Differential without a left shift. Coagulation studies showed normal PT/PTT. Chemistries showed just a low potassium initially on admission with 3.0 and magnesium 1.6. With replacement, magnesium normalized to 1.8 and potassium 4.1. Electrolytes were all within normal limits at discharge, BUN 11, creatinine 0.74. Liver functions within normal limits. RADIOLOGY: She had a chest x-ray on admission and per radiologic interpretation showed no acute osseous abnormalities. Lungs were hyperexpanded, no confluent airspace consolidation, pleural effusion or pneumothorax. EKG showed initially an atrial fibrillation a with ventricular rate of 102. After fluids and treatment, she converted to a sinus marisol rhythm with no complications, no ST or T-wave changes noted. There was note of a first degree AV block. HOSPITAL COURSE: Ms. Tania Vu was admitted for treatment of dehydration and new onset of atrial fibrillation. She was provided fluids, electrolyte replacement and converted without any assistance to a sinus marisol rhythm and did not require any additional anticoagulation. She was showing to be stable. She was no longer having diarrhea. She was actually tolerating a regular diet and was clinically improving. PLAN: Ms. Vu was discharged on 11/06/18 with instructions to followup with Dr. Beasley in the following week. She was to return to [facility]. She was to resume her medications per her MAR. Diet was to increase as tolerated. Activities as per physical therapy and Dr. Ventura. No new medications were prescribed at discharge. CONDITION AT DISCHARGE: Stable and improving. DISPOSITION: The patient was discharged back to [facility]. #[id number] [facility]
== END 2018-11-06 13:50 ==
LOC: INTOOBSV 10:03 → MS 10:03
PROVIDERS: ADMIT Nurse Practitioner Family; ATTEND Nurse Practitioner Family
DX: E86.0 Dehydration (principal); I48.91 Unspecified atrial fibrillation; I44.0 Atrioventricular block, first degree; E87.6 Hypokalemia; E83.42 Hypomagnesemia; E87.8 Other disorders of electrolyte and fluid balance, not elsewhere classified; I11.0 Hypertensive heart disease with heart failure; I50.32 Chronic diastolic (congestive) heart failure; K21.9 Gastro-esophageal reflux disease without esophagitis; M81.0 Age-related osteoporosis without current pathological fracture; E11.40 Type 2 diabetes mellitus with diabetic neuropathy, unspecified; G43.909 Migraine, unspecified, not intractable, without status migrainosus; E78.5 Hyperlipidemia, unspecified; G89.29 Other chronic pain; Z79.51 Long term (current) use of inhaled steroids; Z79.891 Long term (current) use of opiate analgesic; Z79.899 Other long term (current) drug therapy; Z86.19 Personal history of other infectious and parasitic diseases; Z86.73 Personal history of transient ischemic attack (TIA), and cerebral infarction without residual deficits; Z89.422 Acquired absence of other left toe(s); Z87.891 Personal history of nicotine dependence; Z88.1 Allergy status to other antibiotic agents; Z88.7 Allergy status to serum and vaccine; Z91.041 Radiographic dye allergy status; Z91.040 Latex allergy status; Z82.49 Family history of ischemic heart disease and other diseases of the circulatory system
CPT/HCPCS: 96366 ×2; 96367; 96365; 96372 ×3; J1650 ×3; J3475; J3480 ×4; 80053 ×2; 36415 ×5; 85025 ×2; 83735 ×2; 85730; 85610; 83880; 71045; 94760 ×3; 93005 ×2; G0378

== ENCOUNTER 2019-05-24 10:57 | Emergency (ER) | payer MEDICARE, OTHER ==
--- NOTE | 2019-05-24 11:23 | ED.PDOC ---
History of Present Illness - General Chief Complaint: Cardiovascular Problem Time Seen by Provider: 05/24/19 11:17 Source: patient Exam Limitations: other - very poor historian - History of Present Illness Initial Comments: THE PATIENT IS A POOR HISTORIAN. EVIDENTLY SHE WAS AT THE DOCTOR'S OFFICE BECAUSE SHE FELT DEHYDRATED, SHE OFFERS NO SYMPTOMS WHY SHE FELT DEHYDRATED. WHILE ON THE WAITING ROOM SHE NOTED THAT SHE HAD CHEST PAIN AND SHE WAS TOLD TO COME TO THE ED. ONCE IN THE ED THE CHEST PAIN HAS RESOLVED. AGAIN SHE IS UNABLE TO DESCRIBE THE PAIN. Timing/Duration: 1/2 hour Severity/Quality: mild Location: central Chest Pain Radiation: no radiation Improving Factors: nothing Worsening Factors: nothing Nitro Today/Relief: no nitro taken today Aspirin Treatment Today: no aspirin today Associated Symptoms: denies symptoms Allergies/Adverse Reactions: Allergies Cephalexin [From Keflex] Allergy (Mild, Verified 11/04/18 12:20) Iodine Allergy (Unknown, Verified 11/04/18 12:20) Latex Allergy (Verified 11/04/18 12:20) Tetanus Toxoid Allergy (Verified 11/04/18 12:20) IV Dye Allergy (Unknown, Uncoded 09/29/18 23:58) antibiotics Adverse Reaction (Uncoded 09/29/18 23:58) Home Medications: Ambulatory Orders Gabapentin 900 mg PO TID 07/04/13 HYDROcodone 7.5MG/APAP 325MG [[place] 7.5/325] 1 - 2 ea PO Q4H PRN 07/04/13 Alum & Mag Hydrox-Simethicone [Mylanta] 30 ml PO Q4H PRN 12/07/14 Estrogens, Conjugated [Premarin] 0.9 mg PO DAILY 12/07/14 Cholecalciferol [Vitamin D3] 2,000 unit PO DAILY 02/04/18 Clorazepate Dipotassium [Tranxene T] 7.5 mg PO TID 02/04/18 Cyanocobalamin [Vitamin B-12] 1,000 mcg IM MONTHLY 02/04/18 Multiple Vitamins W/ Minerals [Centrum Silver] 1 tab PO DAILY 02/04/18 Polyethylene Glycol 3350 [Miralax] 17 gm PO DAILY 02/04/18 Pregabalin [Lyrica] 50 mg PO BEDTIME 02/04/18 Albuterol Sulfate Nebs [Proventil Nebs] 2.5 mg INH Q6H PRN 11/04/18 Bisacodyl [Dulcolax] 10 mg AL DAILY PRN 11/04/18 Calcium Carb 500Mg-Vitamin D [Oscal 500 + D] 1 ea PO BIDFD 11/04/18 Cholestyramine Powder [Questran Powder] 4 gm PO AC PRN 11/04/18 Cyanocobalamin [Vitamin B-12] 1,000 mcg PO DAILY 11/04/18 Donepezil Hydrochloride [Aricept] 23 mg PO BEDTIME 11/04/18 Epinephrine [Epipen 2-Jimenez] 0.3 mg IJ DAILY PRN 11/04/18 Loratadine 10 mg PO DAILY 11/04/18 Ondansetron HCl [Zofran] 4 mg PO Q4H PRN 11/04/18 Pantoprazole Sodium 40 mg PO 0630 11/04/18 Senna/Docusate Tab [Senokot-S] 2 ea PO BID PRN 11/04/18 Trazodone HCl [Trazodone Hydrochloride] 50 mg PO BEDTIME 11/04/18 guaiFENesin 100 MG/5 ML [Robitussin] 10 ml PO Q6H PRN 11/04/18 Mdiverjemgpnv-Etop-Fzxwahgvkp [Fioricet] 1 tab PO Q4H PRN 11/05/18 Aspirin [Aspirin Adult Low Dose] 81 mg PO DAILY 11/05/18 Fluticasone Prop 0.05% Nasal [Flonase Nasal [place]] 2 spray JENI DAILY 11/05/18 Loperamide Cap [Imodium Cap] 4 mg PO PRN PRN 11/05/18 Simvastatin [Zocor] 40 mg PO BEDTIME 11/05/18 Review of Systems - Review of Systems Constitutional: States: no symptoms reported EENTM: States: no symptoms reported Respiratory: States: no symptoms reported Cardiology: States: chest pain Gastrointestinal/Abdominal: States: no symptoms reported Genitourinary: States: no symptoms reported Musculoskeletal: States: no symptoms reported Skin: States: no symptoms reported Neurological: States: no symptoms reported Endocrine: States: no symptoms reported Hematologic/Lymphatic: States: no symptoms reported Past Medical History (General) - Patient Medical History Hx Seizures: No Hx Stroke: Yes - tia's Hx Dementia: No Hx Asthma: No Hx of COPD: No Hx Cardiac Disorders: Yes Hx Congestive Heart Failure: No Hx Pacemaker: No Hx Hypertension: Yes Hx Thyroid Disease: No Hx Diabetes: Yes Hx Gastroesophageal Reflux: Yes Hx Renal Disease: No Hx Cancer: No Hx of HIV: No Hx Hepatitis C: No Hx MRSA: No - Vaccination History Hx Tetanus, Diphtheria Vaccination: Yes - last one given in 2001 Hx Influenza Vaccination: Yes Hx Pneumococcal Vaccination: Yes - Social History Hx Tobacco Use: Yes Hx Chewing Tobacco Use: No Hx Alcohol Use: No Hx Substance Use: No Hx Substance Use Treatment: No Hx Depression: No Hx Physical Abuse: No Hx Emotional Abuse: No Hx Suspected Abuse: No - Female History Patient : No Family Medical History - Family History Mother Living Status: Hx Cardiac Disease: Yes - mom Hx Family;Other: bowel deformity;copd-dad Father Living Status: Hx Family Congestive Heart Failure: Yes Hx Family;Other: emphasema Physical Exam - Physical Exam General Appearance: Alert, Other - NO OBVIOUS DISTRESS Eyes, Ears, Nose, Throat Exam: PERRL/EOMI, other - PALE CONJUNCTIVA Neck: non-tender, full range of motion, supple Respiratory: chest non-tender, lungs clear, normal breath sounds, no respiratory distress, no accessory muscle use Cardiovascular/Chest: normal peripheral pulses, regular rate, rhythm, no edema, no gallop, no JVD Peripheral Pulses: radial,right: 2+, radial,left: 2+ Gastrointestinal/Abdominal: normal bowel sounds, non tender, soft, no organomegaly, no pulsatile mass Rectal Exam: deferred Extremity: normal range of motion Neurologic: no motor/sensory deficits, normal mood/affect, oriented x 3 Skin Exam: normal color Departure - Departure Clinical Impression: Chest pain Qualifiers: Chest pain type: chest pain on breathing Qualified Code(s): R07.1 - Chest pain on breathing; R07.81 - Pleurodynia Time of Disposition: 14:23 Disposition: Discharge to Home or Self Care Departure Forms: ED Discharge - Pt. Copy, Patient Portal Self Enrollment Instructions: DI for Chest Pain Referrals: Randolph Beasley MD [Primary Care Provider] - 1-2 Weeks Home Medications: Ambulatory Orders Gabapentin 900 mg PO TID 07/04/13 HYDROcodone 7.5MG/APAP 325MG [[place] 7.5/325] 1 - 2 ea PO Q4H PRN 07/04/13 Alum & Mag Hydrox-Simethicone [Mylanta] 30 ml PO Q4H PRN 12/07/14 Estrogens, Conjugated [Premarin] 0.9 mg PO DAILY 12/07/14 Cholecalciferol [Vitamin D3] 2,000 unit PO DAILY 02/04/18 Clorazepate Dipotassium [Tranxene T] 7.5 mg PO TID 02/04/18 Cyanocobalamin [Vitamin B-12] 1,000 mcg IM MONTHLY 02/04/18 Multiple Vitamins W/ Minerals [Centrum Silver] 1 tab PO DAILY 02/04/18 Polyethylene Glycol 3350 [Miralax] 17 gm PO DAILY 02/04/18 Pregabalin [Lyrica] 50 mg PO BEDTIME 02/04/18 Albuterol Sulfate Nebs [Proventil Nebs] 2.5 mg INH Q6H PRN 11/04/18 Bisacodyl [Dulcolax] 10 mg AL DAILY PRN 11/04/18 Calcium Carb 500Mg-Vitamin D [Oscal 500 + D] 1 ea PO BIDFD 11/04/18 Cholestyramine Powder [Questran Powder] 4 gm PO AC PRN 11/04/18 Cyanocobalamin [Vitamin B-12] 1,000 mcg PO DAILY 11/04/18 Donepezil Hydrochloride [Aricept] 23 mg PO BEDTIME 11/04/18 Epinephrine [Epipen 2-Jimenez] 0.3 mg IJ DAILY PRN 11/04/18 Loratadine 10 mg PO DAILY 11/04/18 Ondansetron HCl [Zofran] 4 mg PO Q4H PRN 11/04/18 Pantoprazole Sodium 40 mg PO 0630 11/04/18 Senna/Docusate Tab [Senokot-S] 2 ea PO BID PRN 11/04/18 Trazodone HCl [Trazodone Hydrochloride] 50 mg PO BEDTIME 11/04/18 guaiFENesin 100 MG/5 ML [Robitussin] 10 ml PO Q6H PRN 11/04/18 Twyrghdryleag-Mfue-Ctwlgjxbyk [Fioricet] 1 tab PO Q4H PRN 11/05/18 Aspirin [Aspirin Adult Low Dose] 81 mg PO DAILY 11/05/18 Fluticasone Prop 0.05% Nasal [Flonase Nasal [place]] 2 spray JENI DAILY 11/05/18 Loperamide Cap [Imodium Cap] 4 mg PO PRN PRN 11/05/18 Simvastatin [Zocor] 40 mg PO BEDTIME 11/05/18
--- NOTE | 2019-05-24 11:52 | RAD ---
EXAM DESCRIPTION: Chest,1 View CLINICAL HISTORY: 83 years Female, CHEST PAIN COMPARISON: Previous study November 04, 2018 TECHNIQUE: AP portable chest. FINDINGS: Heart size is prominent with normal pulmonary vascularity. No consolidating infiltrate. No pulmonary mass or worrisome nodule. No pneumothorax or pleural effusion. Bones are unremarkable. IMPRESSION: Prominent heart without congestive failure. Electronically signed by: Chester Barajas MD 05/24/2019 11:50 AM CDT
[2019-05-24 15:24] VITALS: BP 171/80; TEMP 97.5; O2SAT 94
== END 2019-05-24 14:37 | disposition home or self-care (01) ==
LOC: ER 10:57
DX: R07.1 Chest pain on breathing (principal); R07.81 Pleurodynia; K21.9 Gastro-esophageal reflux disease without esophagitis; E11.9 Type 2 diabetes mellitus without complications; I10 Essential (primary) hypertension; I51.9 Heart disease, unspecified; Z86.73 Personal history of transient ischemic attack (TIA), and cerebral infarction without residual deficits; Z87.891 Personal history of nicotine dependence; Z79.82 Long term (current) use of aspirin; Z79.899 Other long term (current) drug therapy; Z88.1 Allergy status to other antibiotic agents; Z91.041 Radiographic dye allergy status; Z91.040 Latex allergy status; Z88.7 Allergy status to serum and vaccine

== ENCOUNTER 2019-07-19 15:37 | Emergency (ER) | payer MEDICARE, OTHER ==
[2019-07-19] MEDS ORDERED: cefTRIAXone SODIUM 1 GM VIAL IM ONE ×2 (18:27→18:41)
[2019-07-19] MEDS ORDERED: LIDOCAINE 1% 2 ML VIAL INJ ONE (18:32)
[2019-07-19 19:21] VITALS: TEMP 96.9
--- NOTE | 2019-07-19 19:40 | ED.PDOC ---
History of Present Illness - General Chief Complaint: General Stated Complaint: gerneralized anxiety, poss med allergic reaction Time Seen by Provider: 07/19/19 16:47 - History of Present Illness Initial Comments: Pt presents with c/o feeling sob, choked and facial swelling after taking Macrobid x 2.5 days for a UTI. Pt denies cp, palpitations, tongue swelling, fever, chills, n/v or diarrhea. Timing/Duration: 1-3 hours Severity: mild Improving Factors: nothing Worsening Factors: nothing Associated Symptoms: shortness of breath Allergies/Adverse Reactions: Allergies Cephalexin [From Keflex] Allergy (Mild, Verified 07/19/19 17:12) Iodine Allergy (Unknown, Verified 07/19/19 17:12) Latex Allergy (Verified 07/19/19 17:12) Tetanus Toxoid Allergy (Verified 07/19/19 17:12) IV Dye Allergy (Unknown, Uncoded 09/29/18 23:58) antibiotics Adverse Reaction (Uncoded 09/29/18 23:58) Home Medications: Ambulatory Orders Gabapentin 900 mg PO TID 07/04/13 HYDROcodone 7.5MG/APAP 325MG [[place] 7.5/325] 1 - 2 ea PO Q4H PRN 07/04/13 Alum & Mag Hydrox-Simethicone [Mylanta] 30 ml PO Q4H PRN 12/07/14 Estrogens, Conjugated [Premarin] 0.9 mg PO DAILY 12/07/14 Cholecalciferol [Vitamin D3] 2,000 unit PO DAILY 02/04/18 Clorazepate Dipotassium [Tranxene T] 7.5 mg PO TID 02/04/18 Cyanocobalamin [Vitamin B-12] 1,000 mcg IM MONTHLY 02/04/18 Multiple Vitamins W/ Minerals [Centrum Silver] 1 tab PO DAILY 02/04/18 Polyethylene Glycol 3350 [Miralax] 17 gm PO DAILY 02/04/18 Pregabalin [Lyrica] 50 mg PO BEDTIME 02/04/18 Albuterol Sulfate Nebs [Proventil Nebs] 2.5 mg INH Q6H PRN 11/04/18 Bisacodyl [Dulcolax] 10 mg SC DAILY PRN 11/04/18 Calcium Carb 500Mg-Vitamin D [Oscal 500 + D] 1 ea PO BIDFD 11/04/18 Cholestyramine Powder [Questran Powder] 4 gm PO AC PRN 11/04/18 Cyanocobalamin [Vitamin B-12] 1,000 mcg PO DAILY 11/04/18 Donepezil Hydrochloride [Aricept] 23 mg PO BEDTIME 11/04/18 Epinephrine [Epipen 2-Jimenez] 0.3 mg IJ DAILY PRN 11/04/18 Loratadine 10 mg PO DAILY 11/04/18 Ondansetron HCl [Zofran] 4 mg PO Q4H PRN 11/04/18 Pantoprazole Sodium 40 mg PO 0630 11/04/18 Senna/Docusate Tab [Senokot-S] 2 ea PO BID PRN 11/04/18 Trazodone HCl [Trazodone Hydrochloride] 50 mg PO BEDTIME 11/04/18 guaiFENesin 100 MG/5 ML [Robitussin] 10 ml PO Q6H PRN 11/04/18 Yyhnhyqtimjgx-Ksgq-Gsjvwnsvvd [Fioricet] 1 tab PO Q4H PRN 11/05/18 Aspirin [Aspirin Adult Low Dose] 81 mg PO DAILY 11/05/18 Fluticasone Prop 0.05% Nasal [Flonase Nasal [place]] 2 spray JENI DAILY 11/05/18 Loperamide Cap [Imodium Cap] 4 mg PO PRN PRN 11/05/18 Simvastatin [Zocor] 40 mg PO BEDTIME 11/05/18 Cefdinir 300 mg PO BID #10 capsule 07/19/19 Review of Systems - Review of Systems Constitutional: States: see HPI EENTM: States: see HPI, throat swelling, mouth swelling Respiratory: States: see HPI Cardiology: States: see HPI Gastrointestinal/Abdominal: States: see HPI Genitourinary: States: see HPI Musculoskeletal: States: see HPI Skin: States: see HPI Neurological: States: see HPI, anxiety Endocrine: States: see HPI Hematologic/Lymphatic: States: see HPI All other Systems: Reviewed and Negative Past Medical History (General) - Patient Medical History Hx Seizures: No Hx Stroke: Yes Hx Dementia: No Hx Asthma: No Hx of COPD: No Hx Cardiac Disorders: Yes Hx Congestive Heart Failure: No Hx Pacemaker: No Hx Hypertension: No Hx Thyroid Disease: No Hx Diabetes: No Hx Gastroesophageal Reflux: Yes Hx Renal Disease: No Hx Cancer: No Hx of HIV: No Hx Hepatitis C: No Hx MRSA: No Surgical History: appendectomy, Hysterectomy - Vaccination History Hx Tetanus, Diphtheria Vaccination: Yes - last one given in 2001 Hx Influenza Vaccination: Yes Hx Pneumococcal Vaccination: Yes - Social History Hx Tobacco Use: No Hx Chewing Tobacco Use: No Hx Alcohol Use: No Hx Substance Use: No Hx Substance Use Treatment: No Hx Depression: No Hx Physical Abuse: No Hx Emotional Abuse: No Hx Suspected Abuse: No - Female History Patient is a Female of Child Bearing Age (10 -59 yrs old): No Patient : No Family Medical History - Family History Mother Living Status: Hx Cardiac Disease: Yes - mom Hx Family;Other: bowel deformity;copd-dad Father Living Status: Hx Family Congestive Heart Failure: Yes Hx Family;Other: emphasema Physical Exam - Physical Exam General Appearance: Alert, Anxious, Well Developed, Well Groomed, Well Hydrated, Well Nourished Eye Exam: bilateral normal Ears, Nose, Throat: hearing grossly normal, normal ENT inspection, normal pharynx Neck: non-tender, full range of motion, supple, normal inspection Respiratory: chest non-tender, lungs clear, normal breath sounds, no respiratory distress, no accessory muscle use, respiratory distress Cardiovascular/Chest: normal peripheral pulses, regular rate, rhythm, no edema, no gallop, no murmur Gastrointestinal/Abdominal: normal bowel sounds, non tender, soft Back Exam: no CVA tenderness, no vertebral tenderness Extremity: normal range of motion, non-tender, normal inspection, no pedal edema 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 Labs wnl. Pt still with pyuria. Will d/c Macrobid and start her on Rocephin IM her and Cefdinir po at home x 5 days. I have d/w the pt the POC and she voices understanding and agreement. Geoffrey Andujar M.D. #[id number] - Results/Orders Results/Orders: 07/19/19 17:30 Urine Culture Stat Laboratory Results - last 24 hr 07/19/19 07/19/19 17:30 17:45 Sodium 129 L Potassium 3.9 Chloride 95 L Carbon Dioxide 22 Anion Gap 15.9 BUN 14 Creatinine 0.86 BUN/Creatinine Ratio 16.3 Random Glucose 102 Serum Osmolality 259.6 L Calcium 9.2 Urine Color Yellow Urine Appearance Clear Urine pH 5.5 Ur Specific [place] <= 1.005 Urine Protein Negative Urine Glucose (UA) Negative Urine Ketones Negative Urine Blood Trace-intact H Urine Nitrite Negative Urine Bilirubin Negative Urine Urobilinogen 0.2 Ur Leukocyte Esterase Moderate H Urine RBC 0-1 Urine WBC 30-40 H Ur Epithelial Cells 3-5 Urine Bacteria 0 Departure - Departure Clinical Impression: Urinary tract infection Qualifiers: Urinary tract infection type: acute cystitis Hematuria presence: without hematuria Qualified Code(s): N30.00 - Acute cystitis without hematuria Allergic reaction caused by a drug Qualifiers: Encounter type: initial encounter Qualified Code(s): T78.40XA - Allergy, unsp ecified, initial encounter Time of Disposition: 19:45 Disposition: Discharge to Home or Self Care Condition: Good Departure Forms: ED Discharge - Pt. Copy, Patient Portal Self Enrollment Instructions: Urinary Tract Infection, Adult (DC), Adverse Drug Reactions, Adult (DC) Referrals: Randolph Beasley MD [Primary Care Provider] - 1-2 Weeks Prescriptions: Cefdinir 300 mg PO BID #10 capsule Home Medications: Ambulatory Orders Gabapentin 900 mg PO TID 07/04/13 HYDROcodone 7.5MG/APAP 325MG [[place] 7.5/325] 1 - 2 ea PO Q4H PRN 07/04/13 Alum & Mag Hydrox-Simethicone [Mylanta] 30 ml PO Q4H PRN 12/07/14 Estrogens, Conjugated [Premarin] 0.9 mg PO DAILY 12/07/14 Cholecalciferol [Vitamin D3] 2,000 unit PO DAILY 02/04/18 Clorazepate Dipotassium [Tranxene T] 7.5 mg PO TID 02/04/18 Cyanocobalamin [Vitamin B-12] 1,000 mcg IM MONTHLY 02/04/18 Multiple Vitamins W/ Minerals [Centrum Silver] 1 tab PO DAILY 02/04/18 Polyethylene Glycol 3350 [Miralax] 17 gm PO DAILY 02/04/18 Pregabalin [Lyrica] 50 mg PO BEDTIME 02/04/18 Albuterol Sulfate Nebs [Proventil Nebs] 2.5 mg INH Q6H PRN 11/04/18 Bisacodyl [Dulcolax] 10 mg SC DAILY PRN 11/04/18 Calcium Carb 500Mg-Vitamin D [Oscal 500 + D] 1 ea PO BIDFD 11/04/18 Cholestyramine Powder [Questran Powder] 4 gm PO AC PRN 11/04/18 Cyanocobalamin [Vitamin B-12] 1,000 mcg PO DAILY 11/04/18 Donepezil Hydrochloride [Aricept] 23 mg PO BEDTIME 11/04/18 Epinephrine [Epipen 2-Jimenez] 0.3 mg IJ DAILY PRN 11/04/18 Loratadine 10 mg PO DAILY 11/04/18 Ondansetron HCl [Zofran] 4 mg PO Q4H PRN 11/04/18 Pantoprazole Sodium 40 mg PO 0630 11/04/18 Senna/Docusate Tab [Senokot-S] 2 ea PO BID PRN 11/04/18 Trazodone HCl [Trazodone Hydrochloride] 50 mg PO BEDTIME 11/04/18 guaiFENesin 100 MG/5 ML [Robitussin] 10 ml PO Q6H PRN 11/04/18 Ggxomfwgmgugl-Esvi-Zhupokizzb [Fioricet] 1 tab PO Q4H PRN 11/05/18 Aspirin [Aspirin Adult Low Dose] 81 mg PO DAILY 11/05/18 Fluticasone Prop 0.05% Nasal [Flonase Nasal [place]] 2 spray JENI DAILY 11/05/18 Loperamide Cap [Imodium Cap] 4 mg PO PRN PRN 11/05/18 Simvastatin [Zocor] 40 mg PO BEDTIME 11/05/18 Cefdinir 300 mg PO BID #10 capsule 07/19/19
[2019-07-19 20:08] VITALS: BP 148/71; O2SAT 94
== END 2019-07-19 20:00 | disposition home or self-care (01) ==
LOC: ER 15:37
DX: N30.00 Acute cystitis without hematuria (principal); R06.02 Shortness of breath; R22.0 Localized swelling, mass and lump, head; R09.89 Other specified symptoms and signs involving the circulatory and respiratory systems; T37.8X5A Adverse effect of other specified systemic anti-infectives and antiparasitics, initial encounter; I51.9 Heart disease, unspecified; K21.9 Gastro-esophageal reflux disease without esophagitis; Z86.73 Personal history of transient ischemic attack (TIA), and cerebral infarction without residual deficits; Z79.899 Other long term (current) drug therapy; Z79.82 Long term (current) use of aspirin; Z88.1 Allergy status to other antibiotic agents; Z91.041 Radiographic dye allergy status; Z91.040 Latex allergy status; Z88.7 Allergy status to serum and vaccine
CPT/HCPCS: 36415; 80048; 81001; 87086; J0696

== ENCOUNTER → 2019-08-03 | Outpatient (CLI) | payer MEDICARE, OTHER ==
--- NOTE | 2019-08-04 14:36 | US ---
EXAM DESCRIPTION: Bladder: ULTRASOUND. CLINICAL HISTORY: 83 years Female RETENTION OF URINE COMPARISON: None Available. TECHNIQUE: Transcutaneous scanning: [place]-scale and Doppler modes. Technically difficult study due to patient body habitus. FINDINGS: Prevoid volume 8.4 x 5.0 x 5.2 cm equals 113.2 mL. 5 minute observation of the urinary bladder with Doppler ultrasound but no ureteral jets were seen. Patient voided and completely emptied the urinary bladder with micturition volume of 113 mL. IMPRESSION: Urinary bladder not well distended but completely emptied on voiding. Micturition volume 113 mL. Ureteral jets were not seen within the bladder by Doppler. Electronically signed by: Nayan Tanner MD 08/04/2019 2:34 PM CDT
== END ==
LOC: US 14:08
PROVIDERS: ATTEND Family Medicine
DX: R33.9 Retention of urine, unspecified (principal)

== ENCOUNTER 2019-08-14 08:01 | Emergency (ER) | payer MEDICARE, OTHER ==
--- NOTE | 2019-08-14 08:28 | ED.PDOC ---
History of Present Illness - General Chief Complaint: Problem Stated Complaint: thinks she has another UTI Time Seen by Provider: 08/14/19 08:10 Source: patient Exam Limitations: no limitations Additional Information: Ms. Vu is an 83-year-old female who presents to the ED with chief complaint of "pressure in my bladder". Patient indicates that her symptoms began last night and that she has been urinating very frequently throughout the night, approximately every 30 minutes. Patient denies abdominal pain nausea vomiting fever or chills. Patient indicates that she has a history of frequent UTIs and believes that she has a recurrent urinary tract infection. Patient has no other complaints. - History of Present Illness Allergies/Adverse Reactions: Allergies Cephalexin [From Keflex] Allergy (Mild, Verified 07/19/19 17:12) Iodine Allergy (Unknown, Verified 07/19/19 17:12) Latex Allergy (Verified 07/19/19 17:12) Tetanus Toxoid Allergy (Verified 07/19/19 17:12) IV Dye Allergy (Unknown, Uncoded 09/29/18 23:58) antibiotics Adverse Reaction (Uncoded 09/29/18 23:58) Home Medications: Ambulatory Orders Gabapentin 900 mg PO TID 07/04/13 HYDROcodone 7.5MG/APAP 325MG [[place] 7.5/325] 1 - 2 ea PO Q4H PRN 07/04/13 Alum & Mag Hydrox-Simethicone [Mylanta] 30 ml PO Q4H PRN 12/07/14 Estrogens, Conjugated [Premarin] 0.9 mg PO DAILY 12/07/14 Cholecalciferol [Vitamin D3] 2,000 unit PO DAILY 02/04/18 Clorazepate Dipotassium [Tranxene T] 7.5 mg PO TID 02/04/18 Cyanocobalamin [Vitamin B-12] 1,000 mcg IM MONTHLY 02/04/18 Multiple Vitamins W/ Minerals [Centrum Silver] 1 tab PO DAILY 02/04/18 Polyethylene Glycol 3350 [Miralax] 17 gm PO DAILY 02/04/18 Pregabalin [Lyrica] 50 mg PO BEDTIME 02/04/18 Albuterol Sulfate Nebs [Proventil Nebs] 2.5 mg INH Q6H PRN 11/04/18 Bisacodyl [Dulcolax] 10 mg [place] DAILY PRN 11/04/18 Calcium Carb 500Mg-Vitamin D [Oscal 500 + D] 1 ea PO BIDFD 11/04/18 Cholestyramine Powder [Questran Powder] 4 gm PO AC PRN 11/04/18 Cyanocobalamin [Vitamin B-12] 1,000 mcg PO DAILY 11/04/18 Donepezil Hydrochloride [Aricept] 23 mg PO BEDTIME 11/04/18 Epinephrine [Epipen 2-Jimenez] 0.3 mg IJ DAILY PRN 11/04/18 Loratadine 10 mg PO DAILY 11/04/18 Ondansetron HCl [Zofran] 4 mg PO Q4H PRN 11/04/18 Pantoprazole Sodium 40 mg PO 0630 11/04/18 Senna/Docusate Tab [Senokot-S] 2 ea PO BID PRN 11/04/18 Trazodone HCl [Trazodone Hydrochloride] 50 mg PO BEDTIME 11/04/18 guaiFENesin 100 MG/5 ML [Robitussin] 10 ml PO Q6H PRN 11/04/18 [id number] [Fioricet] 1 tab PO Q4H PRN 11/05/18 Aspirin [Aspirin Adult Low Dose] 81 mg PO DAILY 11/05/18 Fluticasone Prop 0.05% Nasal [Flonase Nasal [place]] 2 spray JENI DAILY 11/05/18 Loperamide Cap [Imodium Cap] 4 mg PO PRN PRN 11/05/18 Simvastatin [Zocor] 40 mg PO BEDTIME 11/05/18 Cefdinir 300 mg PO BID #10 capsule 07/19/19 Sulfa/Trimeth 800/160 (Ds) Tab [Bactrim DS] 1 tablet PO BID #14 tab 08/14/19 Review of Systems - Review of Systems Constitutional: States: no symptoms reported. Denies: chills, fever, weakness EENTM: States: no symptoms reported Respiratory: States: no symptoms reported. Denies: cough, short of breath Cardiology: Denies: chest pain Gastrointestinal/Abdominal: States: no symptoms reported. Denies: abdominal pain Genitourinary: States: see HPI. Denies: dysuria, hematuria Musculoskeletal: States: no symptoms reported Skin: States: no symptoms reported Neurological: States: no symptoms reported Endocrine: States: no symptoms reported Hematologic/Lymphatic: States: no symptoms reported All other Systems: Reviewed and Negative Past Medical History (General) - Patient Medical History Hx Seizures: No Hx Stroke: Yes Hx Dementia: No Hx Asthma: No Hx of COPD: No Hx Cardiac Disorders: Yes Hx Congestive Heart Failure: No Hx Pacemaker: No Hx Hypertension: No Hx Thyroid Disease: No Hx Diabetes: No Hx Gastroesophageal Reflux: Yes Hx Renal Disease: No Hx Cancer: No Hx of HIV: No Hx Hepatitis C: No Hx MRSA: No Surgical History: Hysterectomy - Vaccination History Hx Tetanus, Diphtheria Vaccination: Yes - last one given in 2001 Hx Influenza Vaccination: No Hx Pneumococcal Vaccination: Yes - Social History Hx Tobacco Use: No Hx Chewing Tobacco Use: No Hx Alcohol Use: No Hx Substance Use: No Hx Substance Use Treatment: No Hx Depression: No Hx Physical Abuse: No Hx Emotional Abuse: No Hx Suspected Abuse: No - Female History Patient is a Female of Child Bearing Age (10 -59 yrs old): No Patient : No Family Medical History - Family History Mother Living Status: Hx Cardiac Disease: Yes - mom Hx Family;Other: bowel deformity;copd-dad Father Living Status: Hx Family Congestive Heart Failure: Yes Hx Family;Other: emphasema Physical Exam - Physical Exam General Appearance: Comfortable, Frail, No apparent distress, Well Developed Neck: non-tender, full range of motion, supple Cardiovascular/Respiratory: regular rate, rhythm, no M/R/G, normal breath sounds, no respiratory distress Gastrointestinal/Abdominal: normal bowel sounds, non tender, soft, no organomegaly, no pulsatile mass Back Exam: normal inspection, no CVA tenderness Extremity: normal range of motion, non-tender, normal inspection Neurologic: spinning frame cleaner II-XII nml as tested, no motor/sensory deficits, alert, normal mood/affect, oriented x 3 Skin Exam: normal color, warm/dry Progress - Progress Progress: 08/14/19 09:21 Patient's blood work is unremarkable but her UA suggests UTI. Will culture urine and give patient Rx for Bactrim, and patient will follow up with her PCP. Vital signs stable, patient NAD and looks clinically well and is safe for discharge with outpatient follow-up. Follow-up instructions, discharge instructions and return to ED precautions discussed with patient, Patient voices understanding and willingness to comply with instructions. All laboratory and radiographic results have been discussed with the patient, and all questions answered.. Patient happy with plan. Departure - Departure Clinical Impression: Urinary tract infection Qualifiers: Urinary tract infection type: acute cystitis Hematuria presence: without hematuria Qualified Code(s): N30.00 - Acute cystitis without hematuria Time of Disposition: : Disposition: Discharge to Home or Self Care Condition: Good Departure Forms: ED Discharge - Pt. Copy, Patient Portal Self Enrollment Instructions: DI for Urinary Tract Infection (UTI) Referrals: Randolph Beasley MD [Primary Care Provider] - 1-5 Days Prescriptions: Sulfa/Trimeth 800/160 (Ds) Tab [Bactrim DS] 1 tablet PO BID #14 tab Home Medications: Ambulatory Orders Gabapentin 900 mg PO TID 07/04/13 HYDROcodone 7.5MG/APAP 325MG [[place] 7.5/325] 1 - 2 ea PO Q4H PRN 07/04/13 Alum & Mag Hydrox-Simethicone [Mylanta] 30 ml PO Q4H PRN 12/07/14 Estrogens, Conjugated [Premarin] 0.9 mg PO DAILY 12/07/14 Cholecalciferol [Vitamin D3] 2,000 unit PO DAILY 02/04/18 Clorazepate Dipotassium [Tranxene T] 7.5 mg PO TID 02/04/18 Cyanocobalamin [Vitamin B-12] 1,000 mcg IM MONTHLY 02/04/18 Multiple Vitamins W/ Minerals [Centrum Silver] 1 tab PO DAILY 02/04/18 Polyethylene Glycol 3350 [Miralax] 17 gm PO DAILY 02/04/18 Pregabalin [Lyrica] 50 mg PO BEDTIME 02/04/18 Albuterol Sulfate Nebs [Proventil Nebs] 2.5 mg INH Q6H PRN 11/04/18 Bisacodyl [Dulcolax] 10 mg [place] DAILY PRN 11/04/18 Calcium Carb 500Mg-Vitamin D [Oscal 500 + D] 1 ea PO BIDFD 11/04/18 Cholestyramine Powder [Questran Powder] 4 gm PO AC PRN 11/04/18 Cyanocobalamin [Vitamin B-12] 1,000 mcg PO DAILY 11/04/18 Donepezil Hydrochloride [Aricept] 23 mg PO BEDTIME 11/04/18 Epinephrine [Epipen 2-Jimenez] 0.3 mg IJ DAILY PRN 11/04/18 Loratadine 10 mg PO DAILY 11/04/18 Ondansetron HCl [Zofran] 4 mg PO Q4H PRN 11/04/18 Pantoprazole Sodium 40 mg PO 0630 11/04/18 Senna/Docusate Tab [Senokot-S] 2 ea PO BID PRN 11/04/18 Trazodone HCl [Trazodone Hydrochloride] 50 mg PO BEDTIME 11/04/18 guaiFENesin 100 MG/5 ML [Robitussin] 10 ml PO Q6H PRN 11/04/18 [id number]-Ldba-Lyvdmhrikq [Fioricet] 1 tab PO Q4H PRN 11/05/18 Aspirin [Aspirin Adult Low Dose] 81 mg PO DAILY 11/05/18 Fluticasone Prop 0.05% Nasal [Flonase Nasal [place]] 2 spray JENI DAILY 11/05/18 Loperamide Cap [Imodium Cap] 4 mg PO PRN PRN 11/05/18 Simvastatin [Zocor] 40 mg PO BEDTIME 11/05/18 Cefdinir 300 mg PO BID #10 capsule 07/19/19 Sulfa/Trimeth 800/160 (Ds) Tab [Bactrim DS] 1 tablet PO BID #14 tab 08/14/19
[2019-08-14 09:25] VITALS: O2SAT 92
[2019-08-14 09:36] VITALS: BP 143/89; TEMP 97.1
== END 2019-08-14 09:34 | disposition home or self-care (01) ==
LOC: ER 08:01
DX: N30.00 Acute cystitis without hematuria (principal); K21.9 Gastro-esophageal reflux disease without esophagitis; I51.9 Heart disease, unspecified; Z87.440 Personal history of urinary (tract) infections; Z86.73 Personal history of transient ischemic attack (TIA), and cerebral infarction without residual deficits; Z79.82 Long term (current) use of aspirin; Z79.899 Other long term (current) drug therapy; Z88.1 Allergy status to other antibiotic agents; Z91.041 Radiographic dye allergy status; Z91.040 Latex allergy status; Z88.7 Allergy status to serum and vaccine

== ENCOUNTER 2019-08-26 07:48 | Emergency (ER) | payer MEDICARE, OTHER ==
--- NOTE | 2019-08-26 08:16 | ED.PDOC ---
History of Present Illness - General Chief Complaint: General Stated Complaint: recurrent UTI Time Seen by Provider: 08/26/19 08:00 - History of Present Illness Initial Comments: Patient presents from home via EMS complaining primarily of anxiety. Says that she has frequent panic attacks, as frequently as every 3 days. This morning she awoke at 5a and her "mind was racing." Says she frequently has difficulty sleeping. She reports increased urinary frequency and some slight burning with urination, but says it is not as bad as previous UTIs. She denies any chest pain, sob, fevers, chills or abdominal pain. Allergies/Adverse Reactions: Allergies Cephalexin [From Keflex] Allergy (Mild, Verified 07/19/19 17:12) Iodine Allergy (Unknown, Verified 07/19/19 17:12) Latex Allergy (Verified 07/19/19 17:12) Tetanus Toxoid Allergy (Verified 07/19/19 17:12) IV Dye Allergy (Unknown, Uncoded 09/29/18 23:58) antibiotics Adverse Reaction (Uncoded 09/29/18 23:58) Home Medications: Ambulatory Orders Gabapentin 900 mg PO TID 07/04/13 HYDROcodone 7.5MG/APAP 325MG [[place] 7.5/325] 1 - 2 ea PO Q4H PRN 07/04/13 Alum & Mag Hydrox-Simethicone [Mylanta] 30 ml PO Q4H PRN 12/07/14 Estrogens, Conjugated [Premarin] 0.9 mg PO DAILY 12/07/14 Cholecalciferol [Vitamin D3] 2,000 unit PO DAILY 02/04/18 Clorazepate Dipotassium [Tranxene T] 7.5 mg PO TID 02/04/18 Cyanocobalamin [Vitamin B-12] 1,000 mcg IM MONTHLY 02/04/18 Multiple Vitamins W/ Minerals [Centrum Silver] 1 tab PO DAILY 02/04/18 Polyethylene Glycol 3350 [Miralax] 17 gm PO DAILY 02/04/18 Pregabalin [Lyrica] 50 mg PO BEDTIME 02/04/18 Albuterol Sulfate Nebs [Proventil Nebs] 2.5 mg INH Q6H PRN 11/04/18 Bisacodyl [Dulcolax] 10 mg [place] DAILY PRN 11/04/18 Calcium Carb 500Mg-Vitamin D [Oscal 500 + D] 1 ea PO BIDFD 11/04/18 Cholestyramine Powder [Questran Powder] 4 gm PO AC PRN 11/04/18 Cyanocobalamin [Vitamin B-12] 1,000 mcg PO DAILY 11/04/18 Donepezil Hydrochloride [Aricept] 23 mg PO BEDTIME 11/04/18 Epinephrine [Epipen 2-Jimenez] 0.3 mg IJ DAILY PRN 11/04/18 Loratadine 10 mg PO DAILY 11/04/18 Ondansetron HCl [Zofran] 4 mg PO Q4H PRN 11/04/18 Pantoprazole Sodium 40 mg PO 0630 11/04/18 Senna/Docusate Tab [Senokot-S] 2 ea PO BID PRN 11/04/18 Trazodone HCl [Trazodone Hydrochloride] 50 mg PO BEDTIME 11/04/18 guaiFENesin 100 MG/5 ML [Robitussin] 10 ml PO Q6H PRN 11/04/18 [id number]-Rgpy-Abibjasmfp [Fioricet] 1 tab PO Q4H PRN 11/05/18 Aspirin [Aspirin Adult Low Dose] 81 mg PO DAILY 11/05/18 Fluticasone Prop 0.05% Nasal [Flonase Nasal [place]] 2 spray JENI DAILY 11/05/18 Loperamide Cap [Imodium Cap] 4 mg PO PRN PRN 11/05/18 Simvastatin [Zocor] 40 mg PO BEDTIME 11/05/18 Cefdinir 300 mg PO BID #10 capsule 07/19/19 Sulfa/Trimeth 800/160 (Ds) Tab [Bactrim DS] 1 tablet PO BID #14 tab 08/14/19 Trazodone HCl [Trazodone Hydrochloride] 50 mg PO BEDTIME 30 Days #30 tab 08/26/19 Review of Systems - Review of Systems Constitutional: States: no symptoms reported EENTM: States: no symptoms reported Respiratory: States: no symptoms reported Cardiology: States: palpitations. Denies: chest pain Gastrointestinal/Abdominal: States: no symptoms reported Genitourinary: States: dysuria, frequency Musculoskeletal: Denies: no symptoms reported Skin: States: no symptoms reported Neurological: States: no symptoms reported Endocrine: States: no symptoms reported Hematologic/Lymphatic: States: no symptoms reported All other Systems: Reviewed and Negative Past Medical History (General) - Patient Medical History Hx Seizures: No Hx Stroke: Yes Hx Dementia: No Hx Asthma: No Hx of COPD: No Hx Cardiac Disorders: Yes - Dyslipidemia Hx Congestive Heart Failure: No Hx Pacemaker: No Hx Hypertension: No Hx Thyroid Disease: No Hx Diabetes: No Hx Gastroesophageal Reflux: Yes Hx Renal Disease: No Hx Cancer: No Hx of HIV: No Hx Hepatitis C: No Hx MRSA: No Surgical History: appendectomy, tonsillectomy, Hysterectomy, other - Vaccination History Hx Tetanus, Diphtheria Vaccination: Yes - last one given in 2001 Hx Influenza Vaccination: No Hx Pneumococcal Vaccination: Yes - Social History Hx Tobacco Use: Yes Hx Chewing Tobacco Use: No Hx Alcohol Use: No Hx Substance Use: No Hx Substance Use Treatment: No Hx Depression: No Hx Physical Abuse: No Hx Emotional Abuse: No Hx Suspected Abuse: No - Female History Patient : No Family Medical History - Family History Mother Living Status: Hx Cardiac Disease: Yes - mom Hx Family;Other: bowel deformity;copd-dad Father Living Status: Hx Family Congestive Heart Failure: Yes Hx Family;Other: emphasema Physical Exam - Physical Exam General Appearance: Alert, Anxious Ears, Nose, Throat: hearing grossly normal, normal ENT inspection Neck: non-tender, full range of motion Respiratory: chest non-tender, lungs clear Cardiovascular/Chest: normal peripheral pulses, no edema Gastrointestinal/Abdominal: non tender, soft Back Exam: normal inspection, no CVA tenderness Extremity: normal range of motion, non-tender Neurologic: no motor/sensory deficits, alert, other - slightly anxious appearing Skin Exam: normal color, warm/dry Progress - Progress Progress: 08/26/19 08:20 MDM 83 y.o. F w/ pmh of anxiety, HTN, frequent UTI's presents primarily c/o anxiety but also some increased urinary frequency. She is prescribed several medications including lyrica, trazadone, and aricept. Was seen on 08/14 for possible UTI, urine cultures at that time were negative. Plan for repeat UA, EKG and likely refer to PCP for further management of her anxiety. 08/26/19 08:46 Patient previously prescribed trazodone, but reports she is no longer taking. Will re-prescribe. Patient to f/u with pcp w/in a week. - Results/Orders Results/Orders: 08/26/19 08:15 EKG .ONCE Laboratory Results - last 24 hr 08/26/19 08:26 Urine Color Yellow Urine Appearance Clear Urine pH 7.0 Ur Specific [place] 1.015 Urine Protein 100 H Urine Glucose (UA) Negative Urine Ketones Negative Urine Blood Trace-intact H Urine Nitrite Negative Urine Bilirubin Negative Urine Urobilinogen 0.2 Ur Leukocyte Esterase Trace H Urine RBC 0-1 Urine WBC 1-3 Ur Epithelial Cells 1-3 Urine Bacteria Rare - EKG/XRAY/CT EKG: Anthony, Sinus, no ST T wave changes Comments: Left axis, 1st degree AV block Departure - Departure Clinical Impression: Anxiety Disposition: Discharge to Home or Self Care Condition: Excellent Departure Forms: ED Discharge - Pt. Copy, Patient Portal Self Enrollment Instructions: Anxiety, Adult (DC) Referrals: Randolph Beasley MD [Primary Care Provider] - 1-2 Weeks Prescriptions: Trazodone HCl [Trazodone Hydrochloride] 50 mg PO BEDTIME 30 Days #30 tab Home Medications: Ambulatory Orders Gabapentin 900 mg PO TID 07/04/13 HYDROcodone 7.5MG/APAP 325MG [[place] 7.5/325] 1 - 2 ea PO Q4H PRN 07/04/13 Alum & Mag Hydrox-Simethicone [Mylanta] 30 ml PO Q4H PRN 12/07/14 Estrogens, Conjugated [Premarin] 0.9 mg PO DAILY 12/07/14 Cholecalciferol [Vitamin D3] 2,000 unit PO DAILY 02/04/18 Clorazepate Dipotassium [Tranxene T] 7.5 mg PO TID 02/04/18 Cyanocobalamin [Vitamin B-12] 1,000 mcg IM MONTHLY 02/04/18 Multiple Vitamins W/ Minerals [Centrum Silver] 1 tab PO DAILY 02/04/18 Polyethylene Glycol 3350 [Miralax] 17 gm PO DAILY 02/04/18 Pregabalin [Lyrica] 50 mg PO BEDTIME 02/04/18 Albuterol Sulfate Nebs [Proventil Nebs] 2.5 mg INH Q6H PRN 11/04/18 Bisacodyl [Dulcolax] 10 mg [place] DAILY PRN 11/04/18 Calcium Carb 500Mg-Vitamin D [Oscal 500 + D] 1 ea PO BIDFD 11/04/18 Cholestyramine Powder [Questran Powder] 4 gm PO AC PRN 11/04/18 Cyanocobalamin [Vitamin B-12] 1,000 mcg PO DAILY 11/04/18 Donepezil Hydrochloride [Aricept] 23 mg PO BEDTIME 11/04/18 Epinephrine [Epipen 2-Jimenez] 0.3 mg [place] DAILY PRN 11/04/18 Loratadine 10 mg PO DAILY 11/04/18 Ondansetron HCl [Zofran] 4 mg PO Q4H PRN 11/04/18 Pantoprazole Sodium 40 mg PO 0630 11/04/18 Senna/Docusate Tab [Senokot-S] 2 ea PO BID PRN 11/04/18 Trazodone HCl [Trazodone Hydrochloride] 50 mg PO BEDTIME 11/04/18 guaiFENesin 100 MG/5 ML [Robitussin] 10 ml PO Q6H PRN 11/04/18 [id number]-Xjaw-Xjsozrbbiu [Fioricet] 1 tab PO Q4H PRN 11/05/18 Aspirin [Aspirin Adult Low Dose] 81 mg PO DAILY 11/05/18 Fluticasone Prop 0.05% Nasal [Flonase Nasal [place]] 2 spray JENI DAILY 11/05/18 Loperamide Cap [Imodium Cap] 4 mg PO PRN PRN 11/05/18 Simvastatin [Zocor] 40 mg PO BEDTIME 11/05/18 Cefdinir 300 mg PO BID #10 capsule 07/19/19 Sulfa/Trimeth 800/160 (Ds) Tab [Bactrim DS] 1 tablet PO BID #14 tab 08/14/19 Trazodone HCl [Trazodone Hydrochloride] 50 mg PO BEDTIME 30 Days #30 tab 08/26/19
[2019-08-26] MEDS ORDERED: LORazepam 0.5 MG TAB PO ONE ×2 (21:55→22:56)
[2019-08-26 21:58] VITALS: TEMP 98.5
--- NOTE | 2019-08-26 22:01 | ED.PDOC ---
History of Present Illness - General Chief Complaint: Behavioral / Psych Stated Complaint: anxiety, panic attack Time Seen by Provider: 08/26/19 21:47 - History of Present Illness Initial Comments: Patient is an 83 y.o. F w/ pmh of anxiety who presents c/o panic attacks. She was seen in the ED this AM for anxiety and some shortness of breath and was prescribed trazodone. Says when she went home she was fine when she was talking on the phone with her daughter and daughter in law, but "the second I get off I'm huffing and puffing and my mind is racing." Patient's neighbor brought her to the ED and reports she has been becoming much more anxious over the past 3 weeks and is concerned that she cannot live by herself. patient denies any chest pain, shortness of breath, fevers or chills. Allergies/Adverse Reactions: Allergies Cephalexin [From Keflex] Allergy (Mild, Verified 07/19/19 17:12) Iodine Allergy (Unknown, Verified 07/19/19 17:12) Latex Allergy (Verified 07/19/19 17:12) Tetanus Toxoid Allergy (Verified 07/19/19 17:12) IV Dye Allergy (Unknown, Uncoded 09/29/18 23:58) antibiotics Adverse Reaction (Uncoded 09/29/18 23:58) Home Medications: Ambulatory Orders Gabapentin 900 mg PO TID 07/04/13 HYDROcodone 7.5MG/APAP 325MG [[place] 7.5/325] 1 - 2 ea PO Q4H PRN 07/04/13 Alum & Mag Hydrox-Simethicone [Mylanta] 30 ml PO Q4H PRN 12/07/14 Estrogens, Conjugated [Premarin] 0.9 mg PO DAILY 12/07/14 Cholecalciferol [Vitamin D3] 2,000 unit PO DAILY 02/04/18 Clorazepate Dipotassium [Tranxene T] 7.5 mg PO TID 02/04/18 Cyanocobalamin [Vitamin B-12] 1,000 mcg IM MONTHLY 02/04/18 Multiple Vitamins W/ Minerals [Centrum Silver] 1 tab PO DAILY 02/04/18 Polyethylene Glycol 3350 [Miralax] 17 gm PO DAILY 02/04/18 Pregabalin [Lyrica] 50 mg PO BEDTIME 02/04/18 Albuterol Sulfate Nebs [Proventil Nebs] 2.5 mg INH Q6H PRN 11/04/18 Bisacodyl [Dulcolax] 10 mg [place] DAILY PRN 11/04/18 Calcium Carb 500Mg-Vitamin D [Oscal 500 + D] 1 ea PO BIDFD 11/04/18 Cholestyramine Powder [Questran Powder] 4 gm PO AC PRN 11/04/18 Cyanocobalamin [Vitamin B-12] 1,000 mcg PO DAILY 11/04/18 Donepezil Hydrochloride [Aricept] 23 mg PO BEDTIME 11/04/18 Epinephrine [Epipen 2-Jimenez] 0.3 mg IJ DAILY PRN 11/04/18 Loratadine 10 mg PO DAILY 11/04/18 Ondansetron HCl [Zofran] 4 mg PO Q4H PRN 11/04/18 Pantoprazole Sodium 40 mg PO 0630 11/04/18 Senna/Docusate Tab [Senokot-S] 2 ea PO BID PRN 11/04/18 Trazodone HCl [Trazodone Hydrochloride] 50 mg PO BEDTIME 11/04/18 guaiFENesin 100 MG/5 ML [Robitussin] 10 ml PO Q6H PRN 11/04/18 Gchoxbluuwcyd-Ctat-Nkpddhgqfr [Fioricet] 1 tab PO Q4H PRN 11/05/18 Aspirin [Aspirin Adult Low Dose] 81 mg PO DAILY 11/05/18 Fluticasone Prop 0.05% Nasal [Flonase Nasal [place]] 2 spray JENI DAILY 11/05/18 Loperamide Cap [Imodium Cap] 4 mg PO PRN PRN 11/05/18 Simvastatin [Zocor] 40 mg PO BEDTIME 11/05/18 Cefdinir 300 mg PO BID #10 capsule 07/19/19 Sulfa/Trimeth 800/160 (Ds) Tab [Bactrim DS] 1 tablet PO BID #14 tab 08/14/19 LORazepam [Ativan] 0.5 mg PO BEDTIME PRN #10 tab 08/26/19 Trazodone HCl [Trazodone Hydrochloride] 50 mg PO BEDTIME 30 Days #30 tab 08/26/19 Review of Systems - Review of Systems Constitutional: States: no symptoms reported EENTM: States: no symptoms reported Respiratory: States: no symptoms reported Cardiology: States: no symptoms reported Gastrointestinal/Abdominal: States: no symptoms reported Genitourinary: States: no symptoms reported Musculoskeletal: States: no symptoms reported Skin: States: no symptoms reported Neurological: States: anxiety, emotional problems Endocrine: States: no symptoms reported Hematologic/Lymphatic: States: no symptoms reported All other Systems: Reviewed and Negative Past Medical History (General) - Patient Medical History Hx Seizures: No Hx Stroke: Yes Hx Dementia: No Hx Asthma: No Hx of COPD: No Hx Cardiac Disorders: Yes - Dyslipidemia Hx Congestive Heart Failure: No Hx Pacemaker: No Hx Hypertension: No Hx Thyroid Disease: No Hx Diabetes: No Hx Gastroesophageal Reflux: Yes Hx Renal Disease: No Hx Cancer: No Hx of HIV: No Hx Hepatitis C: No Hx MRSA: No - Vaccination History Hx Tetanus, Diphtheria Vaccination: Yes - last one given in 2001 Hx Influenza Vaccination: No Hx Pneumococcal Vaccination: Yes - Social History Hx Tobacco Use: Yes Hx Chewing Tobacco Use: No Hx Alcohol Use: No Hx Substance Use: No Hx Substance Use Treatment: No Hx Depression: No Hx Physical Abuse: No Hx Emotional Abuse: No Hx Suspected Abuse: No - Female History Patient : No Family Medical History - Family History Mother Living Status: Hx Cardiac Disease: Yes - mom Hx Family;Other: bowel deformity;copd-dad Father Living Status: Hx Family Congestive Heart Failure: Yes Hx Family;Other: emphasema Physical Exam - Physical Exam General Appearance: Alert, Anxious Eyes, Ears, Nose, Throat Exam: normal ENT inspection, TMs normal Neck: supple, normal inspection Respiratory: lungs clear, normal breath sounds Cardiovascular/Chest: normal peripheral pulses, tachycardia Gastrointestinal/Abdominal: non tender, soft Extremities Exam: non-tender, no evidence of injury Neurological: alert, anxious, other - tearful Appearance: neat, impaired remote memory Behavior/Eye Contact/Speech: cooperative, increased rate of speech Thoughts/Hallucinations: normal thought pattern, no apparent hallucination Skin Exam: normal color, warm/dry Progress - Progress Progress: 08/26/19 22:03 [facility] Patient w/ h/o anxiety here c/o continued panic attacks. Patient's neighbor concerned that she may not be able to live by herself any more. Was seen by myself for anxiety this AM and was restarted on trazodone. She is very anxious a ppearing. Will treat with ativan given the severity of her symptoms as I feel her current state outweighs the risk of side effects of delirium, etc from benzos. Unfortunately the patient's only family in the area is a daughter in law as her son apparently years ago. 08/26/19 22:41 Patient is more calm appearing after ativan. Patient's neighbor reports that he will take her home and look after her. He will take her to her PCP this week Departure - Departure Clinical Impression: Panic attacks Disposition: Discharge to Home or Self Care Condition: Good Departure Forms: ED Discharge - Pt. Copy, Patient Portal Self Enrollment Instructions: Anxiety, Adult (DC) Referrals: Randolph Beasley MD [Primary Care Provider] - 1-2 Weeks Prescriptions: LORazepam [Ativan] 0.5 mg PO BEDTIME PRN #10 tab PRN Reason: Anxiety Home Medications: Ambulatory Orders Gabapentin 900 mg PO TID 07/04/13 HYDROcodone 7.5MG/APAP 325MG [[place] 7.5/325] 1 - 2 ea PO Q4H PRN 07/04/13 Alum & Mag Hydrox-Simethicone [Mylanta] 30 ml PO Q4H PRN 12/07/14 Estrogens, Conjugated [Premarin] 0.9 mg PO DAILY 12/07/14 Cholecalciferol [Vitamin D3] 2,000 unit PO DAILY 02/04/18 Clorazepate Dipotassium [Tranxene T] 7.5 mg PO TID 02/04/18 Cyanocobalamin [Vitamin B-12] 1,000 mcg IM MONTHLY 02/04/18 Multiple Vitamins W/ Minerals [Centrum Silver] 1 tab PO DAILY 02/04/18 Polyethylene Glycol 3350 [Miralax] 17 gm PO DAILY 02/04/18 Pregabalin [Lyrica] 50 mg PO BEDTIME 02/04/18 Albuterol Sulfate Nebs [Proventil Nebs] 2.5 mg INH Q6H PRN 11/04/18 Bisacodyl [Dulcolax] 10 mg TX DAILY PRN 11/04/18 Calcium Carb 500Mg-Vitamin D [Oscal 500 + D] 1 ea PO BIDFD 11/04/18 Cholestyramine Powder [Questran Powder] 4 gm PO AC PRN 11/04/18 Cyanocobalamin [Vitamin B-12] 1,000 mcg PO DAILY 11/04/18 Donepezil Hydrochloride [Aricept] 23 mg PO BEDTIME 11/04/18 Epinephrine [Epipen 2-Jimenez] 0.3 mg IJ DAILY PRN 11/04/18 Loratadine 10 mg PO DAILY 11/04/18 Ondansetron HCl [Zofran] 4 mg PO Q4H PRN 11/04/18 Pantoprazole Sodium 40 mg PO 0630 11/04/18 Senna/Docusate Tab [Senokot-S] 2 ea PO BID PRN 11/04/18 Trazodone HCl [Trazodone Hydrochloride] 50 mg PO BEDTIME 11/04/18 guaiFENesin 100 MG/5 ML [Robitussin] 10 ml PO Q6H PRN 11/04/18 Jmrkdjojlpctt-Oior-Puvblqoodm [Fioricet] 1 tab PO Q4H PRN 11/05/18 Aspirin [Aspirin Adult Low Dose] 81 mg PO DAILY 11/05/18 Fluticasone Prop 0.05% Nasal [Flonase Nasal [place]] 2 spray JENI DAILY 11/05/18 Loperamide Cap [Imodium Cap] 4 mg PO PRN PRN 11/05/18 Simvastatin [Zocor] 40 mg PO BEDTIME 11/05/18 Cefdinir 300 mg PO BID #10 capsule 07/19/19 Sulfa/Trimeth 800/160 (Ds) Tab [Bactrim DS] 1 tablet PO BID #14 tab 08/14/19 LORazepam [Ativan] 0.5 mg PO BEDTIME PRN #10 tab 08/26/19 Trazodone HCl [Trazodone Hydrochloride] 50 mg PO BEDTIME 30 Days #30 tab 08/26/19
[2019-08-26 22:57] VITALS: BP 121/70; O2SAT 95
== END 2019-08-26 09:15 | disposition home or self-care (01) ==
LOC: ER 07:48
DX: F41.9 Anxiety disorder, unspecified (principal); I44.0 Atrioventricular block, first degree; E78.5 Hyperlipidemia, unspecified; K21.9 Gastro-esophageal reflux disease without esophagitis; R30.0 Dysuria; Z87.891 Personal history of nicotine dependence; Z86.73 Personal history of transient ischemic attack (TIA), and cerebral infarction without residual deficits; Z79.82 Long term (current) use of aspirin; Z79.899 Other long term (current) drug therapy; Z88.7 Allergy status to serum and vaccine; Z88.1 Allergy status to other antibiotic agents; Z91.041 Radiographic dye allergy status; Z91.040 Latex allergy status

== ENCOUNTER → 2020-01-26 | Outpatient (CLI) | payer MEDICARE, OTHER | LOC: BFHH 14:40 | PROVIDERS: ATTEND Family Medicine | DX: R30.0 Dysuria (principal) ==

== ENCOUNTER → 2020-02-09 | Outpatient (CLI) | payer MEDICARE, OTHER | LOC: BFHH 13:01 | PROVIDERS: ATTEND Family Medicine | DX: N39.0 Urinary tract infection, site not specified (principal); M15.0 Primary generalized (osteo)arthritis; L89.312 Pressure ulcer of right buttock, stage 2; Z87.440 Personal history of urinary (tract) infections ==

== ENCOUNTER → 2020-06-11 | Outpatient (CLI) | payer MEDICARE, OTHER | LOC: BFHH 12:29 | PROVIDERS: ATTEND Family Medicine | DX: R73.01 Impaired fasting glucose (principal); F02.80 Dementia in other diseases classified elsewhere, unspecified severity, without behavioral disturbance, psychotic disturbance, mood disturbance, and anxiety; I11.0 Hypertensive heart disease with heart failure; I50.22 Chronic systolic (congestive) heart failure; M15.0 Primary generalized (osteo)arthritis; I48.20 Chronic atrial fibrillation, unspecified; M85.80 Other specified disorders of bone density and structure, unspecified site; M51.36 Other intervertebral disc degeneration, lumbar region ==

== ENCOUNTER 2020-06-28 10:12 | Observation (INO) | payer MEDICARE, OTHER ==
--- NOTE | 2020-06-28 10:49 | ED.PDOC ---
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 Denies fever cough sob recent travel or contact with covid19 denies fever chills nausea vomiting diarrhea chest pain sob diaphoresis. No change in diet rest bowel or bladder. Denies drinking or smoking unknown FH HTN DM no other c/o today. PPE worn-N95 surgical mask with attached face shield over N95 goggles gloves and face shield over that Allergies/Adverse Reactions: Allergies Cephalexin [From Keflex] Allergy (Mild, Verified 07/19/19 17:12) Iodine Allergy (Unknown, Verified 07/19/19 17:12) Latex Allergy (Verified 07/19/19 17:12) Tetanus Toxoid Allergy (Verified 07/19/19 17:12) IV Dye Allergy (Unknown, Uncoded 09/29/18 23:58) antibiotics Adverse Reaction (Uncoded 09/29/18 23:58) Home Medications: Ambulatory Orders Gabapentin 900 mg PO TID 07/04/13 HYDROcodone 7.5MG/APAP 325MG [[place] 7.5/325] 1 - 2 ea PO Q4H PRN 07/04/13 Alum & Mag Hydrox-Simethicone [Mylanta] 30 ml PO Q4H PRN 12/07/14 Estrogens, Conjugated [Premarin] 0.9 mg PO DAILY 12/07/14 Cholecalciferol [Vitamin D3] 2,000 unit PO DAILY 02/04/18 Clorazepate Dipotassium [Tranxene T] 7.5 mg PO TID 02/04/18 Cyanocobalamin [Vitamin B-12] 1,000 mcg IM MONTHLY 02/04/18 Multiple Vitamins W/ Minerals [Centrum Silver] 1 tab PO DAILY 02/04/18 Polyethylene Glycol 3350 [Miralax] 17 gm PO DAILY 02/04/18 Pregabalin [Lyrica] 50 mg PO BEDTIME 02/04/18 Albuterol Sulfate Nebs [Proventil Nebs] 2.5 mg INH Q6H PRN 11/04/18 Bisacodyl [Dulcolax] 10 mg TN DAILY PRN 11/04/18 Calcium Carb 500Mg-Vitamin D [Oscal 500 + D] 1 ea PO BIDFD 11/04/18 Cholestyramine Powder [Questran Powder] 4 gm PO AC PRN 11/04/18 Cyanocobalamin [Vitamin B-12] 1,000 mcg PO DAILY 11/04/18 Donepezil Hydrochloride [Aricept] 23 mg PO BEDTIME 11/04/18 Epinephrine [Epipen 2-Jimenez] 0.3 mg IJ DAILY PRN 11/04/18 Loratadine 10 mg PO DAILY 11/04/18 Ondansetron HCl [Zofran] 4 mg PO Q4H PRN 11/04/18 Pantoprazole Sodium 40 mg PO 0630 11/04/18 Senna/Docusate Tab [Senokot-S] 2 ea PO BID PRN 11/04/18 Trazodone HCl [Trazodone Hydrochloride] 50 mg PO BEDTIME 11/04/18 guaiFENesin 100 MG/5 ML [Robitussin] 10 ml PO Q6H PRN 11/04/18 Ojbrgocbisdix-Jmbu-Wwlrecotbi [Fioricet] 1 tab PO Q4H PRN 11/05/18 Aspirin [Aspirin Adult Low Dose] 81 mg PO DAILY 11/05/18 Fluticasone Prop 0.05% Nasal [Flonase Nasal [place]] 2 spray JENI DAILY 11/05/18 Loperamide Cap [Imodium Cap] 4 mg PO PRN PRN 11/05/18 Simvastatin [Zocor] 40 mg PO BEDTIME 11/05/18 Cefdinir 300 mg PO BID #10 capsule 07/19/19 Sulfa/Trimeth 800/160 (Ds) Tab [Bactrim DS] 1 tablet PO BID #14 tab 08/14/19 LORazepam [Ativan] 0.5 mg PO BEDTIME PRN #10 tab 08/26/19 Trazodone HCl [Trazodone Hydrochloride] 50 mg PO BEDTIME 30 Days #30 tab 08/26/19 Review of Systems - Review of Systems Constitutional: States: see HPI EENTM: States: see HPI Respiratory: States: see HPI Cardiology: States: see HPI Gastrointestinal/Abdominal: States: see HPI Genitourinary: States: see HPI Musculoskeletal: States: see HPI Skin: States: see HPI Neurological: States: see HPI Endocrine: States: see HPI Hematologic/Lymphatic: States: see HPI All other Systems: Reviewed and Negative Past Medical History (General) - Patient Medical History Hx Seizures: No Hx Stroke: Yes Hx Dementia: No Hx Asthma: No Hx of COPD: No Hx Cardiac Disorders: Yes - Dyslipidemia Hx Congestive Heart Failure: No Hx Pacemaker: No Hx Hypertension: No Hx Thyroid Disease: No Hx Diabetes: No Hx Gastroesophageal Reflux: Yes Hx Renal Disease: No Hx Cancer: No Hx of HIV: No Hx Hepatitis C: No Hx MRSA: No - Vaccination History Hx Tetanus, Diphtheria Vaccination: Yes - last one given in 2001 Hx Influenza Vaccination: No Hx Pneumococcal Vaccination: No - Social History Hx Tobacco Use: No Hx Chewing Tobacco Use: No Hx Alcohol Use: No Hx Substance Use: No Hx Substance Use Treatment: No Hx Depression: Yes Hx Physical Abuse: No Hx Emotional Abuse: No Hx Suspected Abuse: No - Female History Patient : No Family Medical History - Family History Mother Living Status: Hx Cardiac Disease: Yes - mom Hx Family;Other: bowel deformity;copd-dad Father Living Status: Hx Family Congestive Heart Failure: Yes Hx Family;Other: emphasema Physical Exam - Physical Exam General Appearance: No apparent distress Eye Exam: bilateral normal Ears, Nose, Throat: normal ENT inspection Neck: non-tender, full range of motion Respiratory: no respiratory distress Cardiovascular/Chest: regular rate, rhythm, tachycardia Gastrointestinal/Abdominal: non tender, soft Rectal Exam: deferred Back Exam: normal inspection Extremity: normal range of motion, non-tender Neurologic: no motor/sensory deficits Skin Exam: normal color Progress - Progress Progress: 06/28/20 11:28 A/P-Fall Contusions Hematoma Closed Head Injury, Tachycardia-iv bolus tylenol site monitor pulse ox cbc cmp trop ua ekg cxr xr pelvis c collar ct head and c spine reassess 06/28/20 11:54 06/28/20 12:29 Laboratory Tests 06/28/20 06/28/20 06/28/20 11:12 11:12 11:12 WBC 7.5 RBC 4.99 Hgb 16.3 H Hct 48.1 H MCV 96.3 MCH 32.6 H MCHC 33.8 RDW 13.0 Plt Count 178 MPV 9.5 Absolute Neuts (auto) 5.00 Absolute Lymphs (auto) 1.60 Absolute Monos (auto) 0.30 Absolute Eos (auto) 0.40 Absolute Basos (auto) 0.20 H Neutrophils % 66.8 Lymphocytes % 21.8 Monocytes % 4.5 Eosinophils % 4.7 Basophils % 2.2 H PT 9.8 INR < 1.00 PTT (SP) 23.0 Sodium 136 Potassium 4.0 Chloride 98 L Carbon Dioxide 28 Anion Gap 14.0 BUN 17 Creatinine 0.90 BUN/Creatinine Ratio 18.9 Random Glucose 93 Serum Osmolality 273.2 L Calcium 9.4 Total Bilirubin 0.6 AST 30 ALT 11 Alkaline Phosphatase 68 Troponin I Serum Total Protein 8.7 H Albumin 4.9 Globulin 3.8 H Albumin/Globulin Ratio 1.3 Lipase 56 H 06/28/20 11:12 WBC RBC Hgb Hct MCV MCH MCHC RDW Plt Count MPV Absolute Neuts (auto) Absolute Lymphs (auto) Absolute Monos (auto) Absolute Eos (auto) Absolute Basos (auto) Neutrophils % Lymphocytes % Monocytes % Eosinophils % Basophils % PT INR PTT (SP) Sodium Potassium Chloride Carbon Dioxide Anion Gap BUN Creatinine BUN/Creatinine Ratio Random Glucose Serum Osmolality Calcium Total Bilirubin AST ALT Alkaline Phosphatase Troponin I 0.02 Serum Total Protein Albumin Globulin Albumin/Globulin Ratio Lipase 06/28/20 12:54 - Results/Orders Results/Orders: EKG#1-non specific TW changes Sinus Tachycardia 129bpm EKG#2-non specific TW changes Sinus Tachycardia 126bpm EXAM DESCRIPTION: Pelvis CLINICAL HISTORY: 84 years Female, trauma COMPARISON: None. FINDINGS: Single x-ray view of the pelvis shows total right hip arthroplasty. Advanced degenerative disc disease in lower lumbar spine. Degenerative narrowing of the SI joints. Sacrum appears intact. Intact bones of the pelvic ring. Moderate degenerative narrowing of the left hip joint. IMPRESSION: Negative for fracture. Electronically signed by: Chester Barajas MD 06/28/2020 12:44 PM CDT EXAM DESCRIPTION: Chest,1 View CLINICAL HISTORY: 84 years Female, trauma COMPARISON: Previous chest x-ray May 24, 2019 TECHNIQUE: AP portable chest. FINDINGS: Heart size is large with normal pulmonary vascularity. Calcified aortic arch. No consolidating infiltrate. No pulmonary mass or worrisome nodule. No pneumothorax or pleural effusion. Bones are unremarkable. IMPRESSION: Large heart without congestive failure. Electronically signed by: Chester Barajas MD 06/28/2020 12:43 PM CDT EXAM DESCRIPTION: Cervical Spine CLINICAL HISTORY: trauma COMPARISON: None Available. TECHNIQUE: Cervical CT is performed with thin-section axial imaging. MPRs are created and reviewed as well. FINDINGS: Axial bone window images reveal intact ring of C1. No abnormal widening of the atlantodens interval. No fracture of the vertebral bodies or transverse processes or posterior elements. Lung apices appear clear. No cervical mass or adenopathy. Sagittal reformatted images show normal alignment of vertebral bodies and facets. No jumped facet or facet fracture. Normal craniocervical alignment. No prevertebral soft tissue swelling. No a avulsion of the spinous processes. Spondylosis: Marked facet degenerative spurring is seen on the left at C3-4 and C4-5 levels with severe neural foraminal narrowing. Fused left C2-C3 facet. Multilevel disc degeneration with loss of disc height and prominent anterior and posterior spurring seen at the C5-6 through C7-T1 levels with mild to moderate narrowing of the spinal canal and significant neural foraminal narrowing. Marked degenerative narrowing at the atlantodens interval. Coronal reformatted images show normal atlantooccipital and atlantoaxial alignment. The base of the dens is intact as is the body of C2. Intact lateral masses. IMPRESSION: Negative for fracture or posttraumatic subluxation. This exam was performed according to our departmental dose-optimization program, which includes automated exposure control, adjustment of the mA and/or kV according to patient size and/or use of iterative reconstruction technique. Total DLP equals 1201.77 mGycm. Electronically signed by: Chester Barajas MD 06/28/2020 12:42 PM CDT EXAM DESCRIPTION: CT head without contrast CLINICAL HISTORY: trauma COMPARISON: Previous CT head January 02, 2020 TECHNIQUE: Noncontrast head CT was performed with routine protocol. FINDINGS: Low density in the left posterior temporal lobe consistent with old infarction. High density blood over the convexity of the calvarium. No underlying skull fracture on the bone window images. In other areas, normal gillette-white matter differentiation. Ventricles and sulci are prominent consistent with age-related cerebral volume loss. Multiple old lacunar infarcts. No high density hemorrhage, focal edema or shift of the midline. No sulcal effacement. Normal orbital contents. Basilar cisterns appear clear. Intact calvarium with no fracture or lytic lesion. Calcified intracranial internal carotid arteries. Normal aeration of tympanic cavities and mastoid air cells. No fluid levels in the paranasal sinuses. Skull base appears intact. Symmetrical internal auditory canals. IMPRESSION: Scalp hematoma over the posterosuperior convexity with no underlying calvarial fracture. No acute intracranial pathologic process. This exam was performed according to our departmental dose-optimization program, which includes automated exposure control, adjustment of the mA and/or kV according to patient size and/or use of iterative reconstruction technique. Total DLP equals 1201.77 mGycm. Electronically signed by: Chester Barajas MD 06/28/2020 12:37 PM CDT Laboratory Tests 06/28/20 06/28/20 06/28/20 11:12 11:12 11:12 WBC 7.5 RBC 4.99 Hgb 16.3 H Hct 48.1 H MCV 96.3 MCH 32.6 H MCHC 33.8 RDW 13.0 Plt Count 178 MPV 9.5 Absolute Neuts (auto) 5.00 Absolute Lymphs (auto) 1.60 Absolute Monos (auto) 0.30 Absolute Eos (auto) 0.40 Absolute Basos (auto) 0.20 H Neutrophils % 66.8 Lymphocytes % 21.8 Monocytes % 4.5 Eosinophils % 4.7 Basophils % 2.2 H PT 9.8 INR < 1.00 PTT (SP) 23.0 Sodium 136 Potassium 4.0 Chloride 98 L Carbon Dioxide 28 Anion Gap 14.0 BUN 17 Creatinine 0.90 BUN/Creatinine Ratio 18.9 Random Glucose 93 Serum Osmolality 273.2 L Calcium 9.4 Total Bilirubin 0.6 AST 30 ALT 11 Alkaline Phosphatase 68 Troponin I Serum Total Protein 8.7 H Albumin 4.9 Globulin 3.8 H Albumin/Globulin Ratio 1.3 Lipase 56 H 06/28/20 06/28/20 11:12 12:56 WBC RBC Hgb Hct MCV MCH MCHC RDW Plt Count MPV Absolute Neuts (auto) Absolute Lymphs (auto) Absolute Monos (auto) Absolute Eos (auto) Absolute Basos (auto) Neutrophils % Lymphocytes % Monocytes % Eosinophils % Basophils % PT INR PTT (SP) Sodium Potassium Chloride Carbon Dioxide Anion Gap BUN Creatinine BUN/Creatinine Ratio Random Glucose Serum Osmolality Calcium Total Bilirubin AST ALT Alkaline Phosphatase Troponin I 0.02 < 0.02 Serum Total Protein Albumin Globulin Albumin/Globulin Ratio Lipase Pt. with episodes of alternation between NSR and sinus tachycardia to 130s suspect sick sinus syndrome will admit for observation Mesha accepts Departure - Departure Clinical Impression: Sick sinus syndrome, Tachycardia, Multiple contusions, Hematoma Fall Qualifiers: Encounter type: initial encounter Qualified Code(s): W19.XXXA - Unspecified fal l, initial encounter Time of Disposition: 14:06 Disposition: Admit Patient Condition: Fair Departure Forms: ED Discharge - Pt. Copy, Patient Portal Self Enrollment Instructions: DI for Concussion, DI for Closed Head Injury Referrals: Randolph Beasley MD [Primary Care Provider] - 1-2 Weeks Home Medications: Ambulatory Orders Gabapentin 900 mg PO TID 07/04/13 HYDROcodone 7.5MG/APAP 325MG [[place] 7.5/325] 1 - 2 ea PO Q4H PRN 07/04/13 Alum & Mag Hydrox-Simethicone [Mylanta] 30 ml PO Q4H PRN 12/07/14 Estrogens, Conjugated [Premarin] 0.9 mg PO DAILY 12/07/14 Cholecalciferol [Vitamin D3] 2,000 unit PO DAILY 02/04/18 Clorazepate Dipotassium [Tranxene T] 7.5 mg PO TID 02/04/18 Cyanocobalamin [Vitamin B-12] 1,000 mcg IM MONTHLY 02/04/18 Multiple Vitamins W/ Minerals [Centrum Silver] 1 tab PO DAILY 02/04/18 Polyethylene Glycol 3350 [Miralax] 17 gm PO DAILY 02/04/18 Pregabalin [Lyrica] 50 mg PO BEDTIME 02/04/18 Albuterol Sulfate Nebs [Proventil Nebs] 2.5 mg INH Q6H PRN 11/04/18 Bisacodyl [Dulcolax] 10 mg TN DAILY PRN 11/04/18 Calcium Carb 500Mg-Vitamin D [Oscal 500 + D] 1 ea PO BIDFD 11/04/18 Cholestyramine Powder [Questran Powder] 4 gm PO AC PRN 11/04/18 Cyanocobalamin [Vitamin B-12] 1,000 mcg PO DAILY 11/04/18 Donepezil Hydrochloride [Aricept] 23 mg PO BEDTIME 11/04/18 Epinephrine [Epipen 2-Jimenez] 0.3 mg IJ DAILY PRN 11/04/18 Loratadine 10 mg PO DAILY 11/04/18 Ondansetron HCl [Zofran] 4 mg PO Q4H PRN 11/04/18 Pantoprazole Sodium 40 mg PO 0630 11/04/18 Senna/Docusate Tab [Senokot-S] 2 ea PO BID PRN 11/04/18 Trazodone HCl [Trazodone Hydrochloride] 50 mg PO BEDTIME 11/04/18 guaiFENesin 100 MG/5 ML [Robitussin] 10 ml PO Q6H PRN 11/04/18 Wwjpwhxiqiewv-Nzok-Swhffzlcpd [Fioricet] 1 tab PO Q4H PRN 11/05/18 Aspirin [Aspirin Adult Low Dose] 81 mg PO DAILY 11/05/18 Fluticasone Prop 0.05% Nasal [Flonase Nasal [place]] 2 spray JENI DAILY 11/05/18 Loperamide Cap [Imodium Cap] 4 mg PO PRN PRN 11/05/18 Simvastatin [Zocor] 40 mg PO BEDTIME 11/05/18 Cefdinir 300 mg PO BID #10 capsule 07/19/19 Sulfa/Trimeth 800/160 (Ds) Tab [Bactrim DS] 1 tablet PO BID #14 tab 08/14/19 LORazepam [Ativan] 0.5 mg PO BEDTIME PRN #10 tab 08/26/19 Trazodone HCl [Trazodone Hydrochloride] 50 mg PO BEDTIME 30 Days #30 tab 08/26/19 Decision To Admit - Decistion To Admit Decision to Admit Date: 06/28/20 Decision to Admit Time: 14:06 Kuldeep Zimmer Accepts
[2020-06-28] MEDS ORDERED: SODIUM CHLORIDE 0.9% 1000ML 1,000 ML IVS ONE ×2 (11:00→13:18)
[2020-06-28] MEDS ORDERED: ASPIRIN (CHEWABLE) 81 MG TAB PO ONE (11:00)
--- NOTE | 2020-06-28 12:39 | CT ---
EXAM DESCRIPTION: CT head without contrast CLINICAL HISTORY: trauma COMPARISON: Previous CT head January 02, 2020 TECHNIQUE: Noncontrast head CT was performed with routine protocol. FINDINGS: Low density in the left posterior temporal lobe consistent with old infarction. High density blood over the convexity of the calvarium. No underlying skull fracture on the bone window images. In other areas, normal gillette-white matter differentiation. Ventricles and sulci are prominent consistent with age-related cerebral volume loss. Multiple old lacunar infarcts. No high density hemorrhage, focal edema or shift of the midline. No sulcal effacement. Normal orbital contents. Basilar cisterns appear clear. Intact calvarium with no fracture or lytic lesion. Calcified intracranial internal carotid arteries. Normal aeration of tympanic cavities and mastoid air cells. No fluid levels in the paranasal sinuses. Skull base appears intact. Symmetrical internal auditory canals. IMPRESSION: Scalp hematoma over the posterosuperior convexity with no underlying calvarial fracture. No acute intracranial pathologic process. This exam was performed according to our departmental dose-optimization program, which includes automated exposure control, adjustment of the mA and/or kV according to patient size and/or use of iterative reconstruction technique. Total DLP equals 1201.77 mGycm. Electronically signed by: Chester Barajas MD 06/28/2020 12:37 PM CDT
--- NOTE | 2020-06-28 12:44 | CT ---
EXAM DESCRIPTION: Cervical Spine CLINICAL HISTORY: trauma COMPARISON: None Available. TECHNIQUE: Cervical CT is performed with thin-section axial imaging. MPRs are created and reviewed as well. FINDINGS: Axial bone window images reveal intact ring of C1. No abnormal widening of the atlantodens interval. No fracture of the vertebral bodies or transverse processes or posterior elements. Lung apices appear clear. No cervical mass or adenopathy. Sagittal reformatted images show normal alignment of vertebral bodies and facets. No jumped facet or facet fracture. Normal craniocervical alignment. No prevertebral soft tissue swelling. No a avulsion of the spinous processes. Spondylosis: Marked facet degenerative spurring is seen on the left at C3-4 and C4-5 levels with severe neural foraminal narrowing. Fused left C2-C3 facet. Multilevel disc degeneration with loss of disc height and prominent anterior and posterior spurring seen at the C5-6 through C7-T1 levels with mild to moderate narrowing of the spinal canal and significant neural foraminal narrowing. Marked degenerative narrowing at the atlantodens interval. Coronal reformatted images show normal atlantooccipital and atlantoaxial alignment. The base of the dens is intact as is the body of C2. Intact lateral masses. IMPRESSION: Negative for fracture or posttraumatic subluxation. This exam was performed according to our departmental dose-optimization program, which includes automated exposure control, adjustment of the mA and/or kV according to patient size and/or use of iterative reconstruction technique. Total DLP equals 1201.77 mGycm. Electronically signed by: Chester Barajas MD 06/28/2020 12:42 PM CDT
--- NOTE | 2020-06-28 12:45 | RAD ---
EXAM DESCRIPTION: Chest,1 View CLINICAL HISTORY: 84 years Female, trauma COMPARISON: Previous chest x-ray May 24, 2019 TECHNIQUE: AP portable chest. FINDINGS: Heart size is large with normal pulmonary vascularity. Calcified aortic arch. No consolidating infiltrate. No pulmonary mass or worrisome nodule. No pneumothorax or pleural effusion. Bones are unremarkable. IMPRESSION: Large heart without congestive failure. Electronically signed by: Chester Barajas MD 06/28/2020 12:43 PM CDT
--- NOTE | 2020-06-28 12:47 | RAD ---
EXAM DESCRIPTION: Pelvis CLINICAL HISTORY: 84 years Female, trauma COMPARISON: None. FINDINGS: Single x-ray view of the pelvis shows total right hip arthroplasty. Advanced degenerative disc disease in lower lumbar spine. Degenerative narrowing of the SI joints. Sacrum appears intact. Intact bones of the pelvic ring. Moderate degenerative narrowing of the left hip joint. IMPRESSION: Negative for fracture. Electronically signed by: Chester Barajas MD 06/28/2020 12:44 PM CDT
--- NOTE | 2020-06-28 14:28 | HP ---
SUPERVISING PHYSICIAN: Garry Araiza MD CHIEF COMPLAINT: Head injury. HISTORY OF PRESENT ILLNESS: This is an 84 year-old female patient who was actually at the hospital with [facility]. She was going to her car after her session and she slipped and fell and hit the back of her head. She is a somewhat poor historian but answers most questions appropriately. She is also somewhat forgetful. There is no coughing or upper respiratory symptoms. She had no vomiting or diarrhea. She was brought to the Emergency Room from [facility]. In the Emergency Room, her initial vital signs were temperature 97.3, heart rate 131, blood pressure 124/93, respiratory rate 20, oxygen saturation 95% on room air. Her lab studies showed a WBC of 7.5 with hemoglobin of 6.3, hematocrit 48.1. Her coags were within normal limits. Chemistries were unremarkable with the exception of her chloride was slightly low at 98 with a serum osmolality of 273.2, and a serum total protein of 8.7. Her troponin was 0.02 and her subsequent troponin was 0.02, lipase was 56. Chest x-ray showed enlarged heart without congestive failure. Pelvis x-ray was negative for fracture. Cervical spine CT showed negative for fracture or posttraumatic subluxation. Chest CT showed Head CT showed scalp hematoma over the posterior superior convexity with no underlying calvarial fracture. No acute intracranial pathologic process. The Emergency Room physician was about to send her home but he noted her heart rate varied between the mid 60s up to 130s. Initially, her heart rate was but thought that it normalized after the fluids. He noted that even at rest there was quite bit of variance in her heart rate, again either 60s or up to 130s. She was admitted to the hospital a little over a year ago for atrial fibrillation and she does have some mild diastolic heart failure but has had no other significant cardiac history. She was placed in observation in the hospital to be monitored overnight. PAST MEDICAL HISTORY: 1. Carotid artery stenosis. 2. Congestive heart failure with grade 2 diastolic dysfunction. Her ejection fraction in 2018 was 55%. 3. Hyperlipidemia. 4. Hypertension. 5. Gastroesophageal reflux disease. 6. Recurrent C-diff. 7. Chronic back pain. 8. Degenerative disk disease. 9. Osteoporosis. 10. Osteopenia. 11. Remote history of type 2 diabetes mellitus but she is presently on no medication. 12. History of migraine headaches. 13. TIA due to carotid artery stenosis. 14. History of retinal hemorrhage. 15. Restless leg syndrome. 16. Neuropathy. PAST SURGICAL HISTORY: 1. Appendectomy. 2. Cholecystectomy. 3. Hysterectomy. 4. Tonsillectomy and adenoidectomy. 5. Benign breast biopsy. 6. Carotid endarterectomy. 7. Lipoma removal from right hip. 8. Amputation of left second toe in 2011. 9. Total hip replacement in 2009. CURRENT MEDICATIONS: Per the EMR. ALLERGIES: Cephalexin, Iodine, Lasix, Tetanus, IV dye. FAMILY HISTORY: Positive for congestive heart failure, myocardial infarction, chronic obstructive pulmonary disease and multiple sclerosis. SOCIAL HISTORY: She lives in [place], she is . She has 2 children but one is . There is no history of alcohol or illicit drug use. She did quit smoking in 1981. REVIEW OF SYSTEMS: GENERAL: Negative for chills, negative for fever or fatigue. HEENT: Negative for sinus symptoms, ear pain, vision changes, sore throat. RESPIRATORY: Negative for coughing, wheezing, shortness of breath CARDIAC: Negative for chest pain, palpitations, tachycardia. ABDOMEN: Negative for nausea, vomiting, diarrhea or constipation. MUSCULOSKELETAL: As per history of present illness. NEUROLOGICAL: She is somewhat forgetful. Positive for short memory lapses but negative headaches or seizures. PHYSICAL EXAMINATION: VITAL SIGNS: Temperature 97.3, heart rate 123 but it does go down to around 70. Blood pressure 131/89, respiratory rate 20, oxygen saturation 94% on room air. GENERAL: This is an 84 year-old female patient who is lying in the hospitalized bed. She is in no acute distress. HEENT: Normocephalic, she does have a traumatic injury to the back of her scalp but there is no bleeding or drainage noted. Oropharynx is clear. NECK: Supple without mass. CHEST: Lungs are essentially clear to auscultation bilaterally. There is equal rise and fall of the chest with inspiration and expiration CARDIOVASCULAR: Slightly irregular rhythm, her rate varies profoundly between the mid 60s up to the 120s. ABDOMEN: Soft, nondistended, non-tender. Bowel sounds are positive. EXTREMITIES: No cyanosis, clubbing, or edema. NEUROLOGIC: She is somewhat forgetful but is able to answer all questions appropriately and she is alert and oriented x3. SKIN: Warm and dry with no lesions or rashes noted. LABORATORY: Unremarkable CBC. Chemistries are basically unremarkable. Her other labs and films are per the EMR. ASSESSMENT: 1. Same level fall with negative x-rays. She did not lose consciousness. 2. Irregular heart rate ranging from the 60s to 130s. She does have a history of atrial fibrillation on one occasion with admission to the hospital and she does have mild congestive heart failure but no significant cardiac history. 3. Chronic back pain on narcotics managed by Dr. Beasley. 4. Peripheral neuropathy. 5. Remote history of diabetes mellitus but presently on no medication. 6. Hypertension. 7. Recurrent C-diff, although she had not had a recurrence of C-diff in quite some time. 8. Peripheral neopathy. 9. Restless leg syndrome. PLAN: The patient has been placed in observation. Her home medications have been restarted. Her neurological status was monitored overnight and that has been unremarkable. Hopefully she can go home tomorrow and we will need to send her home on a cardiac care nurse with close followup with her primary care physician, Dr. Beasley. I have also started her on a low-dose of metoprolol to see if we can keep that upper heart rate down below 100. Will monitor her heart rate an blood pressure closely overnight and see if she tolerates the metoprolol. If she does, will send her home on some metoprolol then Dr. Beasley can decide if he wants it to continue at followup. #[id number] [facility]
[2020-06-28] MEDS ORDERED: ONDANSETRON INJ 4 MG/2 ML VIAL IV PRN (15:04)
[2020-06-28] MEDS ORDERED: SODIUM CHLORIDE 0.9% (FLUSH) 10 ML SYG IV PRN (15:04)
[2020-06-28] MEDS ORDERED: IV SET AND CAP CHANGE INJ INJ SCH (15:30)
[2020-06-28] MEDS ORDERED: PREGABALIN 25 MG CAP ONE (19:13)
[2020-06-28] MEDS ORDERED: SODIUM CHLORIDE 0.9% (FLUSH) 10 ML SYG ONE (19:14)
[2020-06-28] MEDS: HYDROcodone 7.5MG/APAP 325MG 1 EA TAB PO PRN (19:21)
[2020-06-28] MEDS: LORazepam 0.5 MG TAB PO PRN (20:06)
[2020-06-28] MEDS: GABAPENTIN 300 MG CAP PO SCH (20:06)
[2020-06-28] MEDS: ENOXAPARIN SODIUM 40 MG/0.4 ML SYG SUBCU SCH (20:07)
[2020-06-28] MEDS: SODIUM CHLORIDE 0.9% (FLUSH) 10 ML SYG IV SCH (20:07)
[2020-06-28] MEDS: DONEPEZIL HYDROCHLORIDE PO SCH (20:07)
[2020-06-28] MEDS ORDERED: NON-FORMULARY MEDICATION 1 EA MIS (Pregabalin [Lyrica] 50 MG) PO SCH (21:00)
[2020-06-28] MEDS ORDERED: METOPROLOL TARTRATE 25 MG TAB PO SCH (21:30)
[2020-06-29] MEDS: HYDROcodone 7.5MG/APAP 325MG 1 EA TAB PO PRN ×3 (01:35→20:05)
[2020-06-29] MEDS: PANTOPRAZOLE SODIUM TAB 40 MG PO SCH (06:04)
[2020-06-29] MEDS: FERROUS SULFATE 325 MG TAB PO SCH (10:12)
[2020-06-29] MEDS: DULoxetine HCL 20 MG CAP PO SCH (10:12)
[2020-06-29] MEDS: CETIRIZINE HCL 10 MG TAB PO SCH (10:12)
[2020-06-29] MEDS: BIFIDOBACTERIUM INFANTIS 4 MG CAP PO SCH (10:12)
[2020-06-29] MEDS: METOPROLOL TARTRATE 25 MG TAB PO SCH ×2 (10:12→18:02)
[2020-06-29] MEDS: POLYETHYLENE GLYCOL 3350 17 GM PCKT PO SCH (10:13)
[2020-06-29] MEDS: ASPIRIN (CHEWABLE) 81 MG TAB PO SCH (10:13)
[2020-06-29] MEDS: SODIUM CHLORIDE 0.9% (FLUSH) 10 ML SYG IV SCH ×2 (10:13→20:06)
[2020-06-29] MEDS: NON-FORMULARY MEDICATION 1 EA MIS (Mirabegron [Myrbetriq] 25 MG) PO SCH (10:13)
[2020-06-29] MEDS: GABAPENTIN 300 MG CAP PO SCH ×3 (10:13→20:04)
[2020-06-29] MEDS: ESTROGENS CONJUGATED 0.9 MG PO SCH (10:13)
[2020-06-29] MEDS ORDERED: ALUM & MAG HYDROX-SIMETHICONE 30 ML UD PO PRN (19:28)
[2020-06-29] MEDS ORDERED: LORazepam 0.5 MG TAB ONE (19:35)
[2020-06-29] MEDS ORDERED: PREGABALIN 25 MG CAP ONE (19:35)
[2020-06-29] MEDS ORDERED: ATORVASTATIN 20 MG TAB PO ONE (19:36)
[2020-06-29] MEDS: LORazepam 0.5 MG TAB PO PRN (20:04)
[2020-06-29] MEDS: DONEPEZIL HYDROCHLORIDE PO SCH (20:06)
[2020-06-29] MEDS: ENOXAPARIN SODIUM 40 MG/0.4 ML SYG SUBCU SCH (20:06)
[2020-06-29] MEDS ORDERED: PREGABALIN 25 MG CAP PO SCH (21:00)
[2020-06-29] MEDS ORDERED: ATORVASTATIN 20 MG TAB PO SCH (21:00)
[2020-06-30] MEDS: HYDROcodone 7.5MG/APAP 325MG 1 EA TAB PO PRN (05:58)
[2020-06-30] MEDS: PANTOPRAZOLE SODIUM TAB 40 MG PO SCH (05:58)
[2020-06-30] MEDS: METOPROLOL TARTRATE 25 MG TAB PO SCH (08:30)
[2020-06-30] MEDS: BIFIDOBACTERIUM INFANTIS 4 MG CAP PO SCH (08:30)
[2020-06-30] MEDS: FERROUS SULFATE 325 MG TAB PO SCH (08:30)
[2020-06-30] MEDS: ASPIRIN (CHEWABLE) 81 MG TAB PO SCH (08:31)
[2020-06-30] MEDS: POLYETHYLENE GLYCOL 3350 17 GM PCKT PO SCH (08:31)
[2020-06-30] MEDS: CETIRIZINE HCL 10 MG TAB PO SCH (08:31)
[2020-06-30] MEDS: NON-FORMULARY MEDICATION 1 EA MIS (Mirabegron [Myrbetriq] 25 MG) PO SCH (08:31)
[2020-06-30] MEDS: ESTROGENS CONJUGATED 0.9 MG PO SCH (08:31)
[2020-06-30] MEDS: DULoxetine HCL 20 MG CAP PO SCH (08:31)
[2020-06-30] MEDS: GABAPENTIN 300 MG CAP PO SCH (08:31)
[2020-06-30] MEDS: SODIUM CHLORIDE 0.9% (FLUSH) 10 ML SYG IV SCH (08:31)
[2020-06-30 11:27] VITALS: BP 129/81; TEMP 98; O2SAT 96
--- NOTE | 2020-06-30 16:15 | DS ---
SUPERVISING PHYSICIAN: Garry Araiza M.D. DISCHARGE DIAGNOSIS: 1. Same level fall with negative x-rays. She did not lose consciousness. 2. Irregular heart rate ranging from the 60s to 130s. She does have a history of atrial fibrillation on one occasion with admission to the hospital and she does have mild congestive heart failure but no significant cardiac history. 3. Chronic back pain on narcotics managed by Dr. Beasley. 4. Peripheral neuropathy. 5. Remote history of diabetes mellitus but presently on no medication. 6. Hypertension. 7. Recurrent C-Diff, although she had not had a recurrence of C-Diff in quite some time. 8. Peripheral neopathy. 9. Restless leg syndrome. HISTORY OF PRESENT ILLNESS: This is an 84 year-old female patient who was actually at the hospital doing [facility]. She was going to her car after her session and slipped on the steps and fell and hit the back of her head. Initially she was a somewhat poor historian but answers most questions appropriately. She is forgetful. There were no complaints of coughing, upper respiratory symptoms, nausea or vomiting or diarrhea. She was brought to the Emergency Room from [facility]. Her initial vital signs showed a temperature of 97.3, heart rate 131, blood pressure 124/93, respiratory rate 20, O2 saturation 95% on room air. Her lab studies were basically unremarkable. Chest x-ray showed an enlarged heart without congestive failure. Pelvis x-ray was negative for fracture. Cervical spine CT showed negative for fracture or posttraumatic subluxation. CT of the head showed scalp hematoma over the posterior super convexity with no using calvarial fracture. No acute intracranial pathologic process. She was actually going to be sent home but noted that her heart rate was very irregular. It ran from the 60s to the 130s in spite of getting fluids. She has no significant history of heart problems other than she was admitted once for atrial fibrillation that resolved and she does have some mild diastolic dysfunction. She was placed in the hospital to monitor her neurologic status as well as watching her heart rate. HOSPITAL COURSE: The patient continued to have a heart rate that was between 60 and 130s. She was given a low dose of Metoprolol tartrate and her heart rate did come down to the 100s. It continued to be irregular between 60s to 100s. Her home medications were restarted. There were no neurological changes. Her lab work was stable. She will be discharged home today in stable condition. She will go home with 2 weeks of ekg monitor and a Metoprolol prescription. LABORATORY: CBC is unremarkable. Chemistries were also unremarkable. All radiology reports are per the History of Present Illness. DISCHARGE PLAN: The patient will be discharged home in stable condition. She does have home health. She is to resume her previous diet and increase her activity as tolerated. She will go home on a ekg monitor for 2 weeks. She is to followup with Dr. Beasley within the next week. In addition to her routine home medications, I have sent her home on Metoprolol tartrate 25 mg b.i.d. It has kept her heart rate running between the 60s and the 100s. I will leave that up to him if he wants to continue it and/or to followup with a cinder crew worker. She is to return to the hospital or followup with Dr. Beasley for any problems or complications. DISCHARGE MEDICATIONS: 1. Hydrocodone. 2. Gabapentin. 3. Mylanta. 4. Premarin. 5. Multivitamins. 6. Vitamin B12. 7. MiraLAX. 8. Vitamin D3. 9. Pregabalin. 10. Aricept. 11. Proventil. 12. Epinephrine. 13. Pantoprazole. 14. Vitamin B12. 15. Aspirin. 16. Ativan. 17. Ferrous Fumarate. 18. Fexofenadine. 19. Align. 20. Lipitor. 21. Myrbetriq. 22. Duloxetine. 23. Zyrtec. 24. Metoprolol tartrate. #[id number] [facility]
[2020-06-30] MEDS ORDERED: METOPROLOL TARTRATE 25 MG TAB PO SCH (21:00)
== END 2020-06-30 11:10 | disposition home health service (06) ==
LOC: ER 10:12 → MS 14:24
PROVIDERS: ADMIT Nurse Practitioner Acute Care; ATTEND Nurse Practitioner Acute Care
DX: S00.03XA Contusion of scalp, initial encounter (principal); S09.90XA Unspecified injury of head, initial encounter; T14.8XXA Other injury of unspecified body region, initial encounter; I49.9 Cardiac arrhythmia, unspecified; I11.0 Hypertensive heart disease with heart failure; I50.32 Chronic diastolic (congestive) heart failure; G89.29 Other chronic pain; E11.42 Type 2 diabetes mellitus with diabetic polyneuropathy; G25.81 Restless legs syndrome; M50.322 Other cervical disc degeneration at C5-C6 level; E78.5 Hyperlipidemia, unspecified; K21.9 Gastro-esophageal reflux disease without esophagitis; M81.0 Age-related osteoporosis without current pathological fracture; Z86.73 Personal history of transient ischemic attack (TIA), and cerebral infarction without residual deficits; Z79.891 Long term (current) use of opiate analgesic; Z79.82 Long term (current) use of aspirin; Z79.899 Other long term (current) drug therapy; Z91.041 Radiographic dye allergy status; Z88.1 Allergy status to other antibiotic agents; Z88.7 Allergy status to serum and vaccine; Z86.19 Personal history of other infectious and parasitic diseases; Z87.891 Personal history of nicotine dependence; W01.0XXA Fall on same level from slipping, tripping and stumbling without subsequent striking against object, initial encounter; Y93.01 Activity, walking, marching and hiking; Y92.238 Other place in hospital as the place of occurrence of the external cause; Y99.8 Other external cause status
CPT/HCPCS: 96360; 96361; 96372 ×2; J7030 ×2; J1650 ×2; A4216 ×3; 80053 ×2; 36415 ×3; 85025 ×2; 83690; 85730; 85610; 84484 ×2; 71045; 72170; 70450; 72125; 94760 ×3; 99285; 93306; 93005 ×2; G0378

== ENCOUNTER → 2020-06-30 | Outpatient (CLI) | payer MEDICARE, OTHER | LOC: RESP 11:36 | PROVIDERS: ATTEND Nurse Practitioner Acute Care | DX: I49.5 Sick sinus syndrome (principal) ==

== ENCOUNTER 2020-07-20 09:04 | Emergency (ER) | payer MEDICARE, OTHER ==
[2020-07-20 09:32] VITALS: TEMP 96.5
[2020-07-20] MEDS ORDERED: SODIUM CHLORIDE 0.9% 500ML 500 ML IVS ONE ×2 (09:50→10:54)
--- NOTE | 2020-07-20 09:57 | ED.PDOC ---
History of Present Illness - General Chief Complaint: General Stated Complaint: LH, dizziness, weakness Time Seen by Provider: 07/20/20 09:06 - History of Present Illness Initial Comments: 84 yo F comes in with c/c of generalized malaise, weakness and "dehydration". states over the past 24 hours just has not felt well. denies fall, chest pain, shortness of breath, n/v/d. no focal weakness, numbness or tingling. no room spinning sensation. no known sick contacts. States she suppose to drink 64 oz of water a day, but the past few days has not been drinking a lot of water. Allergies/Adverse Reactions: Allergies Cephalexin [From Keflex] Allergy (Mild, Verified 07/20/20 09:32) Iodine Allergy (Unknown, Verified 07/20/20 09:32) Latex Allergy (Verified 07/20/20 09:32) Tetanus Toxoid Allergy (Verified 07/20/20 09:32) IV Dye Allergy (Unknown, Uncoded 06/28/20 14:14) Home Medications: Ambulatory Orders Gabapentin 900 mg PO TID 07/04/13 HYDROcodone 7.5MG/APAP 325MG [Olanta 7.5/325] 1 - 2 ea PO Q4H PRN 07/04/13 Alum & Mag Hydrox-Simethicone [Mylanta] 30 ml PO Q4H PRN 12/07/14 Estrogens, Conjugated [Premarin] 0.9 mg PO DAILY 12/07/14 Cholecalciferol [Vitamin D3] 2,000 unit PO DAILY 02/04/18 Cyanocobalamin [Vitamin B-12] 1,000 mcg IM MONTHLY 02/04/18 Multiple Vitamins W/ Minerals [Centrum Silver] 1 tab PO DAILY 02/04/18 Polyethylene Glycol 3350 [Miralax] 17 gm PO DAILY 02/04/18 Pregabalin [Lyrica] 50 mg PO BEDTIME 02/04/18 Albuterol Sulfate Nebs [Proventil Nebs] 2.5 mg INH Q6H PRN 11/04/18 Cyanocobalamin [Vitamin B-12] 1,000 mcg PO DAILY 11/04/18 Donepezil Hydrochloride [Aricept] 23 mg PO BEDTIME 11/04/18 Epinephrine [Epipen 2-Jimenez] 0.3 mg IJ DAILY PRN 11/04/18 Pantoprazole Sodium 40 mg PO 0630 11/04/18 Aspirin [Aspirin Adult Low Dose] 81 mg PO DAILY 11/05/18 LORazepam [Ativan] 0.5 mg PO BEDTIME PRN #10 tab 08/26/19 Atorvastatin Calcium [Lipitor] 20 mg PO DAILY 06/28/20 Bifidobacterium Infantis [Align] 4 mg PO DAILY 06/28/20 Cetirizine HCl [Zyrtec] 10 mg PO DAILY 06/28/20 DULoxetine HCL [Cymbalta] 20 mg PO DAILY 06/28/20 Ferrous Fumarate [Ferretts] 325 mg PO DAILY 06/28/20 Fexofenadine HCl [Humera] 180 mg PO DAILY PRN 06/28/20 Mirabegron [Myrbetriq] 25 mg PO DAILY 06/28/20 Metoprolol Tartrate [Lopressor] 25 mg PO BID #60 tab 06/30/20 Review of Systems - Review of Systems Constitutional: States: malaise, weakness. Denies: chills, fever EENTM: Denies: blurred vision, double vision, ear discharge, nose congestion, throat swelling, mouth swelling Respiratory: Denies: cough, orthopnea, short of breath Cardiology: Denies: chest pain, edema, palpitations, syncope Gastrointestinal/Abdominal: Denies: abdominal pain, diarrhea, nausea, vomiting Genitourinary: Denies: discharge, dysuria, frequency, hematuria Musculoskeletal: Denies: back pain, joint pain, joint swelling, muscle pain, muscle stiffness, neck pain Skin: Denies: change in color, rash Neurological: Denies: headache, numbness, paresthesia, seizure, tingling, tremors Endocrine: Denies: intolerance to cold, intolerance to heat, increased thirst, increased urine, unexplained weight loss Hematologic/Lymphatic: Denies: easy bleeding, easy bruising Past Medical History (General) - Patient Medical History Hx Seizures: No Hx Stroke: Yes Hx Dementia: No Hx Asthma: No Hx of COPD: No Hx Cardiac Disorders: Yes - Dyslipidemia Hx Congestive Heart Failure: No Hx Pacemaker: No Hx Hypertension: No Hx Thyroid Disease: No Hx Diabetes: No Hx Gastroesophageal Reflux: Yes Hx Renal Disease: No Hx Cancer: No Hx of HIV: No Hx Hepatitis C: No Hx MRSA: No Surgical History: no surgical history - Vaccination History Hx Tetanus, Diphtheria Vaccination: Yes - last one given in 2001 Hx Influenza Vaccination: Yes Hx Pneumococcal Vaccination: Yes - Social History Hx Tobacco Use: Yes Hx Chewing Tobacco Use: No Hx Alcohol Use: No Hx Substance Use: No Hx Substance Use Treatment: No Hx Depression: No Hx Physical Abuse: No Hx Emotional Abuse: No Hx Suspected Abuse: No - Female History Patient is a Female of Child Bearing Age (10 -59 yrs old): No Patient : No Family Medical History - Family History Mother Living Status: Hx Cardiac Disease: Yes - mom Hx Family;Other: bowel deformity;copd-dad Father Living Status: Hx Family Congestive Heart Failure: Yes Hx Family;Other: emphysema Physical Exam - Physical Exam General Appearance: Alert, Comfortable, No apparent distress Eye Exam: bilateral normal Ears, Nose, Throat: hearing grossly normal, normal ENT inspection, normal pharynx Neck: non-tender, full range of motion, supple, normal inspection Respiratory: chest non-tender, lungs clear, normal breath sounds, no respiratory distress, no accessory muscle use Cardiovascular/Chest: normal peripheral pulses, no edema, no gallop, no JVD, no murmur, tachycardia Peripheral Pulses: radial,right: 2+, radial,left: 2+, posterior tibialis,right: 2+, posterior tibialis,left: 2+ Gastrointestinal/Abdominal: normal bowel sounds, non tender, soft, no organomegaly, no pulsatile mass Rectal Exam: normal exam Back Exam: normal inspection, no CVA tenderness, no vertebral tenderness Extremity: normal range of motion, non-tender, normal inspection, no pedal edema, no calf tenderness, normal capillary refill Neurologic: sales support consultant II-XII nml as tested, no motor/sensory deficits, alert, normal mood/affect, oriented x 3, other - no prontator drift, finger to nose intact, shuffling type gait. negative romberg. Skin Exam: normal color, warm/dry Comments: HINTS exam negative Progress - Progress Progress: Partial ddx: Dehydration, cad, stroke, viral syndrome/covid, electrolyte abnormality. EKG shows Sinus tachycardia HR 112, with first degree AV block, left axis deviation. no sign change when compared to previous. no focal weakness, gait at baseline per patient. CT head negative for acute pathology. CXR negative for acute pathology. orthostatics negative. Patient given 500 ml bolus x 2. Repeat HR 88 on monitor, symptoms improved. COVID test negative. The data reviewed when caring for this patient included: nurse notes, prior records, etc. The history and assessments from nurses notes were reviewed and considered, and the patient's home medication list was also reviewed and considered. My assessment and the results of testing completed here in the ED were discussed with the patient. All questions were answered, and she express understanding of my assessment and the plan. She have been instructed to return if their symptoms worsen, and have been asked to follow up with their primary care physician to recheck today's presenting complaint. Strict return precautions given. Violeta Hinkle DO # [id number] Laboratory Results WBC 4.4 K/mm3 (4.8-10.8) L 07/20/20 09:45 RBC 4.28 M/mm3 (4.20-5.40) 07/20/20 09:45 Hgb 13.7 gm/dL (12.0-16.0) 07/20/20 09:45 Hct 41.1 % (36.0-47.0) 07/20/20 09:45 MCV 96.1 fl (81.0-99.0) 07/20/20 09:45 MCH 31.9 pg (27.0-31.0) H 07/20/20 09:45 MCHC 33.2 g/dL (33.0-37.0) 07/20/20 09:45 RDW 12.6 % (11.5-14.5) 07/20/20 09:45 Plt Count 190 K/mm3 (130-400) 07/20/20 09:45 MPV 8.5 fl (7.40-10.4) 07/20/20 09:45 Absolute Neuts (auto) 2.20 K/uL (1.8-6.8) 07/20/20 09:45 Absolute Lymphs (auto) 1.50 K/uL (1.0-3.4) 07/20/20 09:45 Absolute Monos (auto) 0.30 K/uL (0.2-0.8) 07/20/20 09:45 Absolute Eos (auto) 0.40 K/uL (0.0-0.4) 07/20/20 09:45 Absolute Basos (auto) 0.00 K/uL (0.0-0.1) 07/20/20 09:45 Neutrophils % 50.6 % (42.0-78.0) 07/20/20 09:45 Lymphocytes % 34.2 % (20.0-50.0) 07/20/20 09:45 Monocytes % 6.3 % (2.0-9.0) 07/20/20 09:45 Eosinophils % 7.9 % (1.0-5.0) H 07/20/20 09:45 Basophils % 1.0 % (0.0-2.0) 07/20/20 09:45 PT 9.9 SECONDS (9.0-10.9) 07/20/20 09:45 INR 1.00 (0.9-1.15) 07/20/20 09:45 PTT (SP) 23.2 SECONDS (21.8-31.6) 07/20/20 09:45 D-Dimer, Quantitative 340.0 ng/ml (131-400) 07/20/20 10:58 Sodium 131 mmol/L (135-145) L 07/20/20 09:45 Potassium 3.7 mmol/L (3.6-5.0) 07/20/20 09:45 Chloride 94 mmol/L (101-111) L 07/20/20 09:45 Carbon Dioxide 28 mmol/L (21-31) 07/20/20 09:45 Anion Gap 12.7 (12-18) 07/20/20 09:45 BUN 14 mg/dL (7-18) 07/20/20 09:45 Creatinine 0.93 mg/dL (0.6-1.3) 07/20/20 09:45 BUN/Creatinine Ratio 15.1 (10-20) 07/20/20 09:45 Random Glucose 101 mg/dL (70-105) 07/20/20 09:45 Serum Osmolality 263.3 mOsm/L (275-295) L 07/20/20 09:45 Calcium 8.9 mg/dL (8.4-10.2) 07/20/20 09:45 Phosphorus 3.5 mg/dL (2.5-4.6) 07/20/20 09:45 Magnesium 1.8 mg/dL (1.8-2.5) 07/20/20 09:45 Total Bilirubin 0.6 mg/dL (0.2-1.0) 07/20/20 09:45 AST 19 IU/L (10-42) 07/20/20 09:45 ALT 9 IU/L (10-60) L 07/20/20 09:45 Alkaline Phosphatase 115 IU/L (42-121) 07/20/20 09:45 Creatine Kinase 93 IU/L (26-140) 07/20/20 09:45 Troponin I < 0.02 ng/mL (0.01-0.05) 07/20/20 09:45 B-Natriuretic Peptide 305.0 pg/ml (0-100) H* 07/20/20 09:45 Serum Total Protein 7.5 gm/dL (6.4-8.2) 07/20/20 09:45 Albumin 4.3 g/dl (3.2-5.5) 07/20/20 09:45 Globulin 3.2 gm/dL (2.3-3.5) 07/20/20 09:45 Albumin/Globulin Ratio 1.3 (1.1-1.9) 07/20/20 09:45 TSH 2.56 uIU/mL (0.34-5.60) 07/20/20 09:45 Urine Color Yellow (Yellow) 07/20/20 10:02 Urine Appearance Clear (Clear) 07/20/20 10:02 Urine pH 7.5 (4.5-7.8) 07/20/20 10:02 Ur Specific [place] 1.020 (1.005-1.030) 07/20/20 10:02 Urine Protein Trace mg/dL 07/20/20 10:02 Urine Glucose (UA) Negative mg/dL (Negative) 07/20/20 10:02 Urine Ketones Negative mg/dL (NEGATIVE) 07/20/20 10:02 Urine Blood Negative (Negative) 07/20/20 10:02 Urine Nitrite Negative 07/20/20 10:02 Urine Bilirubin Negative (NEGATIVE) 07/20/20 10:02 Urine Urobilinogen 0.2 mg/dL (0.2-1.0) 07/20/20 10:02 Ur Leukocyte Esterase Trace (Negative) H 07/20/20 10:02 Urine RBC 0 /hpf 07/20/20 10:02 Urine WBC 0-1 /hpf 07/20/20 10:02 Ur Epithelial Cells 0 /hpf 07/20/20 10:02 Urine Bacteria 0 07/20/20 10:02 Departure - Departure Clinical Impression: Dehydration Time of Disposition: 11:53 Disposition: Discharge to Home or Self Care Departure Forms: ED Discharge - Pt. Copy, Patient Portal Self Enrollment Instructions: Dehydration, Adult (DC), Generalized Weakness (DC) Referrals: Randolph Beasley MD [Primary Care Provider] - 1-2 Days Home Medications: Ambulatory Orders Gabapentin 900 mg PO TID 07/04/13 HYDROcodone 7.5MG/APAP 325MG [Olanta 7.5/325] 1 - 2 ea PO Q4H PRN 07/04/13 Alum & Mag Hydrox-Simethicone [Mylanta] 30 ml PO Q4H PRN 12/07/14 Estrogens, Conjugated [Premarin] 0.9 mg PO DAILY 12/07/14 Cholecalciferol [Vitamin D3] 2,000 unit PO DAILY 02/04/18 Cyanocobalamin [Vitamin B-12] 1,000 mcg IM MONTHLY 02/04/18 Multiple Vitamins W/ Minerals [Centrum Silver] 1 tab PO DAILY 02/04/18 Polyethylene Glycol 3350 [Miralax] 17 gm PO DAILY 02/04/18 Pregabalin [Lyrica] 50 mg PO BEDTIME 02/04/18 Albuterol Sulfate Nebs [Proventil Nebs] 2.5 mg INH Q6H PRN 11/04/18 Cyanocobalamin [Vitamin B-12] 1,000 mcg PO DAILY 11/04/18 Donepezil Hydrochloride [Aricept] 23 mg PO BEDTIME 11/04/18 Epinephrine [Epipen 2-Jimenez] 0.3 mg IJ DAILY PRN 11/04/18 Pantoprazole Sodium 40 mg PO 0630 11/04/18 Aspirin [Aspirin Adult Low Dose] 81 mg PO DAILY 11/05/18 LORazepam [Ativan] 0.5 mg PO BEDTIME PRN #10 tab 08/26/19 Atorvastatin Calcium [Lipitor] 20 mg PO DAILY 06/28/20 Bifidobacterium Infantis [Align] 4 mg PO DAILY 06/28/20 Cetirizine HCl [Zyrtec] 10 mg PO DAILY 06/28/20 DULoxetine HCL [Cymbalta] 20 mg PO DAILY 06/28/20 Ferrous Fumarate [Ferretts] 325 mg PO DAILY 06/28/20 Fexofenadine HCl [Humera] 180 mg PO DAILY PRN 06/28/20 Mirabegron [Myrbetriq] 25 mg PO DAILY 06/28/20 Metoprolol Tartrate [Lopressor] 25 mg PO BID #60 tab 06/30/20
--- NOTE | 2020-07-20 10:19 | RAD ---
: 1935. TECHNIQUE: PA and lateral views of the chest. Comparison: June 28, 2020. Clinical history: dizziness, weakness. Heart size: Normal. Calcified aorta noted. Lungs: No acute consolidation. Pleura: No pleural effusion. No pneumothorax. Mediastinum and naz: Unremarkable. Skeletal: Thoracic spondylosis. IMPRESSION: 1. No active disease in the chest. Electronically signed by: Hector Chawla MD 07/20/2020 10:18 AM CDT
--- NOTE | 2020-07-20 10:19 | CT ---
PROCEDURE: CT Head Without Intravenous Contrast CLINICAL INDICATION: The patient is 84 years old and is Female; weakness, dizziness MAIN TECHNIQUE: Axial computed tomography images of the head/brain without intravenous contrast. Sagittal and coronal reformatted images were created and reviewed. This CT exam was performed using one or more of the following dose reduction techniques: automated exposure control, adjustment of the mA and/or kV according to patient size, and/or use of iterative reconstruction technique. COMPARISON: Prior study from 06/28/2020 FINDINGS: BRAIN: There are moderate confluent stable areas of hypodensity in the periventricular white matter, extending into the centrum semiovale and rodriguez radiata bilaterally, which are felt to represent the sequela of small vessel ischemic disease (microangiopathy). The gillette/white matter differentiation is intact. NO intra-or extra-axial fluid collections are seen. There are bilateral old lacunar infarctions, on the RIGHT in the genuine of the RIGHT internal capsule and in the LEFT in a similar location as well as in the LEFT insula. Early infarcts within the first 12 hours may not be visible on noncontrast CT. MIDLINE SHIFT: There is NO midline shift. VENTRICLES: There is mild stable global atrophy with prominence of the ventricles, sulci and basilar cisterns. BONES/JOINTS: Unremarkable. No calvarial fracture. SOFT TISSUES: The soft tissues of the scalp are unremarkable. VASCULATURE: Intracranial vascular calcifications are noted. SINUSES: The visualized paranasal sinuses are clear. MASTOID AIR CELLS: Unremarkable as visualized. No mastoid effusion. ORBITS: There has been bilateral cataract surgery. IMPRESSION: No acute intracranial abnormality is identified. No change. Electronically signed by: Julio C Reardon MD 07/20/2020 10:18 AM CDT
[2020-07-20 13:00] VITALS: BP 125/72; O2SAT 93
== END 2020-07-20 12:28 | disposition home or self-care (01) ==
LOC: ER 09:04
DX: E86.0 Dehydration (principal); E78.5 Hyperlipidemia, unspecified; K21.9 Gastro-esophageal reflux disease without esophagitis; Z87.891 Personal history of nicotine dependence; Z86.73 Personal history of transient ischemic attack (TIA), and cerebral infarction without residual deficits; Z79.899 Other long term (current) drug therapy; Z79.82 Long term (current) use of aspirin; Z88.1 Allergy status to other antibiotic agents; Z91.041 Radiographic dye allergy status; Z91.040 Latex allergy status; Z88.7 Allergy status to serum and vaccine; Z20.828 Contact with and (suspected) exposure to other viral communicable diseases
CPT/HCPCS: 36415; 70450; 71046; 80053; 81001; 82550; 83735; 83880; 84100; 84443; 84484; 85025; 85379; 85610; 85730; 87635; 93005; J7040

== ENCOUNTER → 2020-08-06 | Outpatient (CLI) | payer MEDICARE, OTHER | LOC: BFHH 14:25 | PROVIDERS: ATTEND Family Medicine | DX: R30.0 Dysuria (principal) ==

== ENCOUNTER → 2020-09-04 | Outpatient (CLI) | payer MEDICARE, OTHER ==
--- NOTE | 2020-09-05 12:37 | MRI ---
EXAM DESCRIPTION: Brain w/o Contrast: MRI. CLINICAL HISTORY: DEMENTIA COMPARISON: CT scan of the head June 28. TECHNIQUE: Multiplanar, high-field MRI unit, multiple diffusion sequences, multiple conventional sequences without contrast. FINDINGS: Bilateral confluent hyperintense FLAIR and T2-weighted signal in the periventricular white matter of the frontal and occipital horns also involving the parietal periventricular white matter more superiorly, and bilateral rodriguez radiata. Conclusion and involvement of the bilateral centrum semiovale. Circumscribed defect with CSF density in the left frontal lobe rodriguez radiata most likely an old infarct/encephalomalacia with gliosis.. A second area with encephalomalacia ganglia versus in the junction of the posterior left temporal lobe and the inferior left parietal lobe. Scattered bilateral subcortical white matter focal lesions. No hemorrhage, no cerebral edema, no midline shift.. No diffusion restriction. Normal signal in the bilateral basal ganglia. No diffusion restriction. Focal hyperintense FLAIR and T2 signal in the central gael; remainder of the Brainstem and cerebellar hemispheres with normal signal. No hemorrhage, no cerebral edema, no mass-effect. Concordance of the diffusion and non-diffusion sequences with no diffusion restriction. Cortical sulci, ventricles, and other CSF spaces, and the subdural spaces are normally configured for patients age with minimal cortical and central atrophy. No effacement or displacement. No midline shift. No extra-axial hemorrhage. Normal flow signal void in the major vessels of the [place], and the venous sinuses. IACs are symmetric bilaterally. No abnormal signal in the bilateral mastoid air cells. No mass effect in the bilateral cerebellopontine angles. Pituitary gland occupies most of the sella. Base of the cerebellar tonsils is just above the foramen magnum. Minimal mucoperiosteal thickening in the paranasal sinuses; No air-fluid levels. The bony calvarium is intact. IMPRESSION: 1. Diffuse periventricular white matter. Normal signal consistent with cerebral microvascular disease and aging changes. Old infarctions with encephalomalacia and gliosis in the left frontal rodriguez radiata fibers, and the junction of the posterior left temporal lobe and inferior left parietal lobe. No intra-axial or extra-axial hemorrhage or fluid collection. 2. MR noncontrast diffusion study showing normal diffusion with no restriction and no evidence of acute or subacute infarction. 3. Chronic paranasal sinusitis. Electronically signed by: Nayan Tanner MD 09/05/2020 12:36 PM [facility]
== END ==
LOC: MRI 09:00
PROVIDERS: ATTEND Family Medicine
DX: I63.89 Other cerebral infarction (principal); J32.9 Chronic sinusitis, unspecified; R90.82 White matter disease, unspecified; G93.89 Other specified disorders of brain; F03.90 Unspecified dementia, unspecified severity, without behavioral disturbance, psychotic disturbance, mood disturbance, and anxiety

== ENCOUNTER → 2020-09-09 | Outpatient (CLI) | payer MEDICARE, OTHER | LOC: LAB.O 13:29 | PROVIDERS: ATTEND Psychiatry & Neurology Neurology | DX: M45.9 Ankylosing spondylitis of unspecified sites in spine (principal); M25.50 Pain in unspecified joint; F01.50 Vascular dementia, unspecified severity, without behavioral disturbance, psychotic disturbance, mood disturbance, and anxiety; G37.9 Demyelinating disease of central nervous system, unspecified; M33.90 Dermatopolymyositis, unspecified, organ involvement unspecified; F81.9 Developmental disorder of scholastic skills, unspecified; E11.9 Type 2 diabetes mellitus without complications; R53.83 Other fatigue; R50.9 Fever, unspecified; M79.7 Fibromyalgia; L81.2 Freckles; M10.9 Gout, unspecified; G44.1 Vascular headache, not elsewhere classified; I10 Essential (primary) hypertension; Z79.899 Other long term (current) drug therapy; Z79.01 Long term (current) use of anticoagulants; M35.1 Other overlap syndromes; G35 Multiple sclerosis; G70.00 Myasthenia gravis without (acute) exacerbation; G04.89 Other myelitis; M54.81 Occipital neuralgia; H46.9 Unspecified optic neuritis; M15.0 Primary generalized (osteo)arthritis; M81.8 Other osteoporosis without current pathological fracture; R53.81 Other malaise; Z74.09 Other reduced mobility; M35.3 Polymyalgia rheumatica; M33.22 Polymyositis with myopathy; G61.81 Chronic inflammatory demyelinating polyneuritis; M54.12 Radiculopathy, cervical region; M54.16 Radiculopathy, lumbar region; I73.00 Raynaud's syndrome without gangrene; G25.89 Other specified extrapyramidal and movement disorders; M06.9 Rheumatoid arthritis, unspecified; D86.9 Sarcoidosis, unspecified; M32.10 Systemic lupus erythematosus, organ or system involvement unspecified; M31.6 Other giant cell arteritis ==

== ENCOUNTER → 2020-09-12 | Outpatient (CLI) | payer MEDICARE, OTHER ==
--- NOTE | 2020-09-13 12:50 | MRI ---
EXAM DESCRIPTION: Cervical Spine: MRI. CLINICAL HISTORY: 84 years Female cervical disc disorder COMPARISON: CT scan cervical spine June 28. MRI scan brain September 04. TECHNIQUE: Multiplanar, high-field MRI, multiple sequences, non-contrast Cervical spine. FINDINGS: C2-C3: Right signal in the central disc may represent granulation tissue. No posterior bulging. Disc space is decreased. Anomalous partially fused facet joints bilaterally with bilaterally enlarged neural foramina. C3-C4: Disc desiccation posterior broad-based bulge. Bilateral uncinate spurs, larger on the left with left side spondylosis. Disc spur complex encroaching on the foramen which is stenotic. Hypertrophic arthrosis left facet and mass on the right facet. Mild to moderate right foraminal narrowing. C4-C5: Disc desiccation and moderate disc space loss. Grade 1 anterolisthesis. Posterior midline disc bulge impressing on the central cord. Posterior flavum ligament thickening. AP canal diameter 7.5 mm. Bilateral uncinate spurs and endplate hypertrophic changes. Minimal arthrosis on the right with mild narrowing of the neural foramen. Advanced arthrosis and hypertrophy on the left and left neural foraminal stenosis. C5-C6: Disc desiccation moderate disc space loss. Bilateral endplate changes and disc spur complex encroaching on the foramina. Bilateral uncinate spurs and posterior disc osteophyte complex bulging into the canal more on the right. Posterior ligament thickening. AP canal diameter 5.4 mm. Mild left neural foraminal narrowing with right neural foraminal stenosis. C6-C7: Disc desiccation minimal disc space loss. Circumferential endplate reactive changes with anterior disc bulge and spurs. Posterior bulge abutting the cord. Bilateral uncinate spurs. Facet joints are unremarkable. Left neural foraminal mild stenosis and moderate right neural foraminal narrowing. C7-T1: Disc desiccation and anterior endplate reactive changes and bilateral plate reactive changes. Bilateral uncinate spurs. Schmorl's nodes in the endplates. Posterior disc osteophyte bulge. Mild canal narrowing. Bilateral moderate neural foraminal narrowing. Normal signal in the T1-T2 disc with no bulging. Disc spaces preserved. Canal and neural foramina are patent. Facet joints unremarkable. Spinal alignment kyphosis C3-C6. No cord compression or cord edema. Atlantoaxial joint mild arthrosis.. Base of the cerebellar tonsils is above the foramen magnum. Paravertebral soft tissues negative.. Vertebral bodies are not compressed at any level. Inhomogeneous marrow signal in the remaining vertebral bodies and the posterior elements. IMPRESSION: 1. 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 Calcification or granulation tissue in the disc space. Please compare to previous CT scan. Multiple levels of disc space loss, disc desiccation, disc bulging, endplate reactive changes, facet arthrosis and hypertrophy and hypertrophy of the posterior flavum ligaments. 2. C3-C4 left side spondylosis and facet hypertrophic arthrosis with bilateral foraminal stenosis. 3. Multifactorial C4-C5 central canal stenosis. Multifactorial left neural foraminal stenosis. 4. Severe multifactorial central canal stenosis C5-C6. Bilateral foraminal stenosis. 5. Please refer to FINDINGS for discussion results and other disc space levels. Electronically signed by: Nayan Tanner MD 09/13/2020 12:49 PM [facility]
== END ==
LOC: MRI 14:00
PROVIDERS: ATTEND Psychiatry & Neurology Neurology
DX: M50.122 Cervical disc disorder at C5-C6 level with radiculopathy (principal); M50.11 Cervical disc disorder with radiculopathy, high cervical region; M47.22 Other spondylosis with radiculopathy, cervical region; M48.02 Spinal stenosis, cervical region; M51.16 Intervertebral disc disorders with radiculopathy, lumbar region

== ENCOUNTER → 2020-09-13 | Outpatient (CLI) | payer MEDICARE, OTHER ==
--- NOTE | 2020-09-16 10:33 | MRI ---
EXAM DESCRIPTION: Lumbar Spine w/o Contrast : Magnetic Resonance Imaging. CLINICAL HISTORY: RADICULOPATHY COMPARISON: MR cervical spine on September 12. TECHNIQUE: Multiplanar, multiple standard sequences, non contrast MRI, lumbar spine. FINDINGS: L5-S1: The disc is well visualized on axial T2 series 501, image 3. Disc desiccation and moderate disc space loss. Moderate endplate reactive changes in the midline more advanced to the left with disc spur complex causing left foraminal stenosis and impingement of the exiting left L5 nerve. Posterior midline disc bulge and 6 mm grade 1 anterolisthesis. Disc bulge causing right foraminal stenosis and impingement of the exiting right L5 nerve. Moderate hypertrophic changes in the posterior flavum ligaments and facet joints (canal elements). AP canal diameter 7.5 mm. L4-L5: Moderate endplate reactive changes and moderate disc space loss with multiple endplate irregularities. 3 mm grade 1 anterolisthesis. Posterior midline disc osteophyte bulge 4 mm. Hypertrophic changes in the canal elements, more on the left. AP canal diameter 11 mm. Borderline right foraminal stenosis and moderate to severe left foraminal narrowing. L3-L4: Disc desiccation minimal disc space loss posterior moderate anterior with moderate endplate reactive changes bulging disc and endplate ridging. Lateral disc bulge into the foramina. Posterior broad-based disc bulge into the canal. Minimal hypertrophy of the canal elements. Minimal canal narrowing. Mild narrowing left foramen and moderate narrowing right foramen. L2-L3: Moderate disc space loss midline and right side with right disc osteophyte encroachment on the foramen abutting the right L2 nerve. Mild narrowing left foramen. Minimal posterior bulge. Minimal hypertrophic changes in the canal elements and canal is patent. L1-L2: Disc desiccation with anterior moderate endplate reactive changes more on the right. Bulging disc and spurs. Posterior broad-based bulge and protrusion midline left and inferior effacing the left subarticular recess and displacing the left L2 nerve. Moderate narrowing of the right foramen and mild narrowing of the left foramen. T12-L1: Disc desiccation with disc space maintained. Minimal no bulging. Posterior hypertrophic changes canal elements. Impressing on the posterior lateral thecal sac. Moderate narrowing right foramen and mild narrowing left foramen. Mild canal narrowing. Conus terminates just below the disc space. Circumscribed hyperintense T1 and T2 hemangiomas in the T12 vertebral body, and the L3 vertebral body L2-L5 levoscoliosis. Paravertebral soft tissues cyst inferior right kidney. Distal cord normal signal and caliber. Heterogeneous marrow signal in the vertebral bodies and the posterior elements. Vertebral bodies are not compressed at any level. IMPRESSION: 1. Multiple levels of desiccated and bulging discs, endplate spondylosis and disc space loss, hypertrophic changes in the posterior flavum ligaments and facet joints. Degenerative scoliosis. 2. Bilateral foraminal stenosis L5-S1 and mild to moderate, multifactorial central canal stenosis. Anterolisthesis. 3. Anterolisthesis at L4-L5. Borderline right foraminal stenosis. 4. Right side spondylosis L2-L3 and disc spur complex encroaching on the right foramen and right L2 nerve. 5. Left posterior L1-L2 disc bulge and protrusion encroaching on the left subarticular recess and displacing the left L2 nerve. 6. Please refer to FINDINGS for discussion of results at specific disc space levels. Electronically signed by: Nayan Tanner MD 09/16/2020 10:31 AM [facility]
== END ==
LOC: MRI 14:00
PROVIDERS: ATTEND Psychiatry & Neurology Neurology
DX: M51.16 Intervertebral disc disorders with radiculopathy, lumbar region (principal); M48.07 Spinal stenosis, lumbosacral region; M47.26 Other spondylosis with radiculopathy, lumbar region; M43.16 Spondylolisthesis, lumbar region; M41.9 Scoliosis, unspecified; M24.28 Disorder of ligament, vertebrae; M25.78 Osteophyte, vertebrae

== ENCOUNTER → 2020-09-17 | Outpatient (CLI) | payer MEDICARE, OTHER | LOC: BFHH 12:14 | PROVIDERS: ATTEND Family Medicine | DX: D51.0 Vitamin B12 deficiency anemia due to intrinsic factor deficiency (principal); I11.0 Hypertensive heart disease with heart failure; M15.0 Primary generalized (osteo)arthritis; J44.9 Chronic obstructive pulmonary disease, unspecified; I48.20 Chronic atrial fibrillation, unspecified ==

== ENCOUNTER → 2020-10-11 | Outpatient (CLI) | payer MEDICARE, OTHER | LOC: GMAM 11:23 | PROVIDERS: ATTEND Family Medicine | DX: R41.9 Unspecified symptoms and signs involving cognitive functions and awareness (principal) ==

== ENCOUNTER → 2020-12-12 | Outpatient (CLI) | payer MEDICARE, OTHER | LOC: RESP 13:08 | PROVIDERS: ATTEND Family Medicine | DX: R00.1 Bradycardia, unspecified (principal) ==